=== PATIENT | male | born 1975 | race Caucasian/White ===

== ENCOUNTER 2021-12-18 06:53 | Inpatient (IN) | payer MEDICAID, SELFPAY ==
[2021-12-18] VITALS (11 sets, daily range): BP systolic 124–156; BP diastolic 61–99; PULSE 82–98; RESP 12–19; TEMP 36.5–37.1; O2SAT 97–99; BMI 24.4
--- NOTE | 2021-12-18 07:56 | ED.WOUNDLAC ---
HPI - Wound/Laceration General Chief Complaint: Wound/Laceration Stated Complaint: Mersa on left leg Time Seen by Provider: 12/18/21 07:55 Source: patient Mode of arrival: Ambulatory Limitations: no limitations History of Present Illness HPI narrative: This is a 46-year-old man with history of housing insecurity, longstanding left lower leg infection. Patient states initially he injured his leg when trying to pull would out of a pile of tree that had been cut down he fell scraping or cutting his leg. Patient has had chronic injury for the past reported 10 months he states that it has never healed. He has been on antibiotics he has been told he had MRSA. He was referred to the wound care clinic at [facility] but was never able to establish there was not any openings. Patient states he has had some subjective fever chills sensation, he had rapid increase in swelling of his left lower extremity over the past several days. He states the wound has not really been draining new staff occasionally will be purulent but sometimes or but clear discoloration. He has had increasing pain particularly in the back calf and has area of scab. He states the redness seems to have been longstanding but has developed heat and warmth to the area. Patient occasionally has had some funny feelings in his chest but denies chest pain, no shortness of breath. He has had nausea but no active vomiting. No major issues with bowel movements or urination. He denies any regular medical issues or that he should be taking any prescription drugs. Denies any prior surgeries. He does use tobacco, occasional alcohol, states use marijuana but denies any IV drug use or other recreational substances. Patient does not have an established primary care provider. He states he has found stable housing recently. Records from October 2021 ER visit was obtained from [facility]. It appears patient has been treated with Bactrim, clinda + keflex in October, Linezolid and Cipro in June. Patient's chart shows in early September she had a culture that showed Klebsiella and MRSA. Related Data Home Medications Medication Instructions Recorded Confirmed No Known Home Medications 12/18/21 12/18/21 Allergies Allergy/AdvReac Type Severity Reaction Status Date / Time No Known Drug Allergies Allergy Verified 12/18/21 07:10 Review of Systems Review of Systems ROS Unobtainable: All systems reviewed & are unremarkable except as noted in HPI and below Patient History Social History household members: other Smoking Status: Current every day smoker alcohol intake: never Smoking Status: Current every day smoker alcohol intake frequency: 0-2 drinks per day Substance Use Type: marijuana Exam Narrative Exam Narrative: GENERAL: Alert and oriented x three, male in mild distress. HEENT: Head normocephalic, atraumatic, EOMI, pupils reactive, face symmetric, moist mucous membranes NECK: Supple, full range of motion CARDIOVASCULAR: Regular rate and rhythm without murmurs, rubs or gallops. Positive for JVD. RESPIRATORY: Breath sounds equal bilaterally, no wheezes rales or rhonchi. No tachypnea accessory muscle use. ABDOMEN: Soft, nontender. Normoactive bowel sounds all 4 quadrants. No guarding or rebound, rigidity, no mass : No CVA tenderness EXTREMITIES: Normal range of motion, no clubbing. Neurovascularly intact. Patient has significant swelling of the left calf and foot in comparison to the right, there is a 5 x 6 cm irregularly shaped wound on the anterior layton without active drainage but has brownish discolored dried crusting. Patient also has some peeling of the skin on the dorsum of his foot. Patient is tender over the calf the lower leg for about 4 cm below the knee is erythematous, there is significant warmth on the posterior calf not as appreciable on the anterior leg. There is also scabbed regions about 2 cm x 1 cm on the posterior calf without open wound visualized. Patient's cap refills less than 2 seconds. Patient has normal range of motion. NEUROLOGICAL: Cranial nerves II through XII grossly intact. Moving all extremities SKIN: Warm, dry, no petechiae, no rashes or lesions other than noted above. Initial Vital Signs Initial Vital Signs: Vital Signs Temperature 98.4 F 12/18/21 07:00 Pulse Rate 93 H 12/18/21 07:00 Respiratory Rate 18 12/18/21 07:00 Blood Pressure 135/80 12/18/21 07:00 Pulse Oximetry 99 12/18/21 07:00 Course Orders Ordered: Acetaminophen (Acetaminophen 325 Mg Tablet) 650 mg PO Q6HR PRN PRN Reason: pain Enoxaparin Sodium (Enoxaparin 40 Mg/0.4 Ml Syringe) 40 mg SUBCUT DAILY DORIS Ceftriaxone Sodium 1,000 mg/ (Sodium Chloride) 100 mls @ 200 mls/hr IV Q24H [facility] Last Infusion: 12/18/21 14:43 Dose: 0 mls/hr Documented by: Admin: 12/18/21 13:45 Dose: 200 mls/hr Documented by: EMMA Vancomycin HCl/Dextrose (Vancomycin) 1,500 mg in 300 mls @ 200 mls/hr IV Q12H [facility] Last Admin: 12/18/21 14:43 Dose: 200 mls/hr Documented by: EMMA Naloxone HCl (Naloxone 0.4 Mg/Ml Vial) 0.2 mg IV Q2MIN PRN PRN Reason: Opiate Reversal Vancomycin HCl (Vancomycin Trough) 1 request MISC NOW ONE Stop: 12/20/21 01:31 Discontinued Medications Sodium Chloride (Normal Saline 0.9%) 2,397 mls @ 799 mls/hr 30 ml/kg infuse over 3 hr (2397 ml) IV NOW ONE Stop: 12/18/21 11:25 Last Admin: 12/18/21 09:00 Dose: 799 mls/hr Documented by: MARIA G Clindamycin Phosphate (Cleocin) 900 mg in 50 mls @ 50 mls/hr IV NOW ONE Stop: 12/18/21 09:25 Last Admin: 12/18/21 09:01 Dose: 50 mls/hr Documented by: MARIA G Ketorolac Tromethamine (Ketorolac 30 Mg/Ml Vial) 15 mg IV NOW ONE Stop: 12/18/21 08:27 Last Admin: 12/18/21 09:00 Dose: 15 mg Documented by: MARIA G Pantoprazole Sodium (Pantoprazole 40 Mg Vial) 80 mg IV NOW ONE Stop: 12/18/21 11:23 Vancomycin HCl (Vancomycin Per Pharmacy) 1 request MISC NOW ONE Stop: 12/18/21 13:04 Last Admin: 12/18/21 13:47 Dose: Not Given Documented by: EMMA Consultations Consultation #1: Dr. Johnston, [facility] accepts for observation. Time: 11:42 Vital Signs Vital signs: Vital Signs - 8 hr 12/18/21 07:00 12/18/21 09:00 12/18/21 09:30 Temperature 98.4 F Pulse Rate 93 H 98 H 90 Respiratory Rate 18 16 18 Blood Pressure 135/80 140/79 128/61 Pulse Oximetry 99 99 98 12/18/21 10:20 Temperature Pulse Rate 92 H Respiratory Rate 12 Blood Pressure 133/68 Pulse Oximetry MDM - Wound/Laceration Lab Data Result diagrams: 12/18/21 07:52 12/18/21 07:52 Labs: Lab Results 12/18/21 12/18/21 12/18/21 Range/Units 07:52 07:52 07:52 WBC 13.3 H (4.5-11.0) X10^3/uL RBC 4.28 L (4.5-5.9) X10^6/uL Hgb 12.6 L (13.5-17.5) g/dL Hct 38.1 L (41-53) % MCV 89.0 (80-100) fL MCH 29.4 (26-34) PG MCHC 33.0 (30-36) % RDW 15.5 H (11.6-14.8) % Plt Count 247 (150-400) X10^3/uL Neut % (Auto) 79.4 H (50-75) % Lymph % (Auto) 12.6 L (25-40) % [place] % (Auto) 6.8 (3-14) % Eos % (Auto) 0.8 L (2-4) % Baso % (Auto) 0.4 (0-2) % Neut # (Auto) 53125 H (1982-9235) /uL Lymph # (Auto) 1700 (3449-5394) /uL [place] # (Auto) 900 (0-900) /uL Eos # (Auto) 100 (0-450) /uL Baso # (Auto) 0 (0-100) /uL Sodium 134 L (137-145) mmol/L Potassium 3.4 (3.4-5.1) mmol/L Chloride 98 (98-107) mmol/L Carbon Dioxide 30 (22-32) mmol/L BUN 16 (9-20) mg/dL Creatinine 0.98 (0.66-1.25) mg/dL Estimated GFR > 60 (>60) mL/min BUN/Creatinine Ratio 16.3 (6-22) Glucose 120 H (70-100) mg/dL Lactate 1.7 (0.7-2.1) mmol/L Calcium 8.8 (8.4-10.2) mg/dL Total Bilirubin 0.5 (0.2-1.3) mg/dL AST 20 (17-59) IU/L ALT 12 (<50) IU/L Alkaline Phosphatase 89 (38-126) U/L Total Protein 7.7 (6.3-8.2) g/dL Albumin 3.9 (3.5-5.0) g/dL Globulin 3.8 (1.7-4.1) g/dL Albumin/Globulin Ratio 1.0 (1.0-2.8) Lipase 52 (23-300) U/L Procalcitonin 0.37 (<0.5) ng/mL SARS-CoV-2 (PCR) (Negative) 12/18/21 Range/Units 09:04 WBC (4.5-11.0) X10^3/uL RBC (4.5-5.9) X10^6/uL Hgb (13.5-17.5) g/dL Hct (41-53) % MCV (80-100) fL MCH (26-34) PG MCHC (30-36) % RDW (11.6-14.8) % Plt Count (150-400) X10^3/uL Neut % (Auto) (50-75) % Lymph % (Auto) (25-40) % [place] % (Auto) (3-14) % Eos % (Auto) (2-4) % Baso % (Auto) (0-2) % Neut # (Auto) (4001-5397) /uL Lymph # (Auto) (4175-7272) /uL [place] # (Auto) (0-900) /uL Eos # (Auto) (0-450) /uL Baso # (Auto) (0-100) /uL Sodium (137-145) mmol/L Potassium (3.4-5.1) mmol/L Chloride (98-107) mmol/L Carbon Dioxide (22-32) mmol/L BUN (9-20) mg/dL Creatinine (0.66-1.25) mg/dL Estimated GFR (>60) mL/min BUN/Creatinine Ratio (6-22) Glucose (70-100) mg/dL Lactate (0.7-2.1) mmol/L Calcium (8.4-10.2) mg/dL Total Bilirubin (0.2-1.3) mg/dL AST (17-59) IU/L ALT (<50) IU/L Alkaline Phosphatase (38-126) U/L Total Protein (6.3-8.2) g/dL Albumin (3.5-5.0) g/dL Globulin (1.7-4.1) g/dL Albumin/Globulin Ratio (1.0-2.8) Lipase (23-300) U/L Procalcitonin (<0.5) ng/mL SARS-CoV-2 (PCR) Positive H (Negative) Imaging Data Extremity x-ray #1: Radiologist's Impression: [address] [address] XRay Report Signed Patient: Praveen Capps MR#: [id number] : 1975 Acct:[id number] Age/Sex: 46 / M Date of Service: 12/18/21 Loc: ED Accession Number: [id number] ?? Procedure: XR tibia fibula LT 2V Ordering Provider: Lupe Cross D.O. PROCEDURE:? XR TIBIA FIBULA LT 2V ? INDICATIONS:? chronic leg infection, r/o FB ? TECHNIQUE:? 2 views of the tibia and fibula were acquired.? ? COMPARISON:? None. ? FINDINGS:? ? Bones:? No acute fractures or dislocations.? No suspicious bony lesions.? ? Soft tissues:? No suspicious soft tissue calcifications or masses.? Skin irregularity is seen at the anterior aspect of lower leg.? Diffuse subcutaneous soft tissue edema is present. ? IMPRESSION:? Skin irregularity is seen at the anterior lower leg with diffuse subcutaneous soft tissue edema.? No radiopaque foreign body. ? Dictated by: Tho Beach M.D. on 12/18/2021 at 8:41 ? ? Approved by: Toh Beach M.D. on 12/18/2021 at 8:46?? US - DVT: Radiologist's Impression: Praveen Capps??46??M??1975 ? Allergy/Adv: No Known Drug Allergies Close Vascular Ultrasound (Signed) Osito Lloyd - 12/18/21 Tibia/Fibula X-Ray (Signed) Tho Beach - 12/18/21 Launch?[address] [address] Ultrasound Report Signed Patient: Praveen Capps MR#: [id number] : 1975 Acct:[id number] Age/Sex: 46 / M Date of Service: 12/18/21 Loc: ED Accession Number: [id number] ?? Procedure: US periph venous low extrem lt Ordering Provider: Lupe Cross D.O. PROCEDURE:? US PERIPH VENOUS LOW EXTREM LT ? INDICATIONS:? PAIN AND SWELLING WITH CHRONIC INFECTION ? TECHNIQUE:? Real-time imaging, as well as color and pulse Doppler interrogation, were performed of the lower extremity deep veins from the inguinal ligament to the popliteal fossa.? ? COMPARISON:? None. ? FINDINGS:? The common femoral, femoral and popliteal veins are normally compressible, and free of intraluminal thrombus.? Color and pulse Doppler demonstrate normal phasic intraluminal flow.? There is normal augmentation response to distal compression maneuver. ? ? A1 can be seen, without an associated underlying fluid collection. ? Enlarged left groin lymph nodes are seen, with the largest measuring 3.5 x 1.4 x 2.8 cm.? This lymph node demonstrates a normal fatty hilum.? There is additional enlarged lymph node measuring 3 x 3 x 1.4 cm that demonstrates loss of the normal fatty hilum. ? IMPRESSION:? ? Negative for deep venous thrombosis. ? No fluid collections are seen associated with the wound. ? Enlarged left groin lymph nodes are seen. ? ? Dictated by: Osito Lloyd M.D. on 12/18/2021 at 8:13 ? ? Approved by: Osito Lloyd M.D. on 12/18/2021 at 8:14?? [facility] Narrative Medical decision making narrative: This is a 46-year-old male presents with chronic left lower extremity wound infection which appears to be worsening. Patient has elevated heart rate at 90, does not quite meet septic criteria his white count is 13 today. Hemoglobin is 12 he does have a leftward shift, labs are otherwise fairly unremarkable with a sodium of 134 glucose of 120 with normal renal function normal lactate and a negative procalcitonin. Patient had x-ray imaging unclear if he has had this before evaluate for foreign body or any obvious bony changes not or appreciated, DVT ultrasound was also ordered as he has significant swelling and calf tenderness and longstanding infection which is negative but does show some inguinal lymphadenopathy. Patient is COVID positive today which is likely incidental. He is oxygenation has been appropriate today. Patient has been on multiple antibiotics, he has been recommended to wound care but he there has not been able to or has not established. Last visit I have available is in October at [facility]. Discussed with hospitalist about keeping for observation and IV antibiotics and to he accepts for observation. Discharge Plan Departure Patient Disposition: Admitted as Observation Clinical Impression: Chronic wound of extremity, Cellulitis of left leg, COVID-19 virus infection Admit Date/Time: 12/18/21 11:48 Admit Provider: Pepe Johnston
[2021-12-18 08:02] LABS: Add Manual Diff / Slide Review NO; Basophils Absolute Auto 0 /uL (0-100); Basophils Percent Auto 0.4 % (0-2); Eosinophils Absolute Auto 100 /uL (0-450); Eosinophils Percent Auto 0.8 % (2-4); Hematocrit 38.1 % (41-53); Hemoglobin 12.6 g/dL (13.5-17.5); Lymphocytes Absolute Auto 1700 /uL (1100-4500); Lymphocytes Percent Auto 12.6 % (25-40); Mean Corpuscular Hemoglobin 29.4 PG (26-34); Monocytes Absolute Auto 900 /uL (0-900); Monocytes Percent Auto 6.8 % (3-14); Neutrophils Absolute Auto 10600 /uL (1500-7000); Neutrophils Percent Auto 79.4 % (50-75); Platelet Count 247 X10^3/uL (150-400); Red Blood Cell Count 4.28 X10^6/uL (4.5-5.9); Red Cell Distribution Width 15.5 % (11.6-14.8); White Blood Cell Count 13.3 X10^3/uL (4.5-11.0)
[2021-12-18 08:21] LABS: Lactate (Lactic Acid) 1.7 mmol/L (0.7-2.1)
[2021-12-18 08:22] LABS: Alanine Aminotransferase 12 IU/L (<50); Albumin 3.9 g/dL (3.5-5.0); Alkaline Phosphatase 89 U/L (38-126); Aspartate Aminotransferase 20 IU/L (17-59); BUN Creatinine Ratio 16.3 (6-22); Bilirubin Total 0.5 mg/dL (0.2-1.3); Blood Urea Nitrogen 16 mg/dL (9-20); Calcium 8.8 mg/dL (8.4-10.2); Carbon Dioxide 30 mmol/L (22-32); Chloride 98 mmol/L (98-107); Estimated Glomerular Filt Rate > 60 mL/min (>60); Globulin 3.8 g/dL (1.7-4.1); Glucose 120 mg/dL (70-100); HEMOLYSIS < 15 (0-50); Lipase 52 U/L (23-300); Potassium 3.4 mmol/L (3.4-5.1); Sodium 134 mmol/L (137-145); Total Protein 7.7 g/dL (6.3-8.2)
--- NOTE | 2021-12-18 08:26 | DI.US.S_ITS ---
PROCEDURE: US PERIPH VENOUS LOW EXTREM LT INDICATIONS: PAIN AND SWELLING WITH CHRONIC INFECTION TECHNIQUE: Real-time imaging, as well as color and pulse Doppler interrogation, were performed of the lower extremity deep veins from the inguinal ligament to the popliteal fossa. COMPARISON: None. FINDINGS: The common femoral, femoral and popliteal veins are normally compressible, and free of intraluminal thrombus. Color and pulse Doppler demonstrate normal phasic intraluminal flow. There is normal augmentation response to distal compression maneuver. A1 can be seen, without an associated underlying fluid collection. Enlarged left groin lymph nodes are seen, with the largest measuring 3.5 x 1.4 x 2.8 cm. This lymph node demonstrates a normal fatty hilum. There is additional enlarged lymph node measuring 3 x 3 x 1.4 cm that demonstrates loss of the normal fatty hilum. IMPRESSION: Negative for deep venous thrombosis. No fluid collections are seen associated with the wound. Enlarged left groin lymph nodes are seen. Dictated by: Osito Lloyd M.D. on 12/18/2021 at 8:13 Approved by: Osito Lloyd M.D. on 12/18/2021 at 8:14
--- NOTE | 2021-12-18 08:26 | DI.RAD.S_ITS ---
PROCEDURE: XR TIBIA FIBULA LT 2V INDICATIONS: chronic leg infection, r/o FB TECHNIQUE: 2 views of the tibia and fibula were acquired. COMPARISON: None. FINDINGS: Bones: No acute fractures or dislocations. No suspicious bony lesions. Soft tissues: No suspicious soft tissue calcifications or masses. Skin irregularity is seen at the anterior aspect of lower leg. Diffuse subcutaneous soft tissue edema is present. IMPRESSION: Skin irregularity is seen at the anterior lower leg with diffuse subcutaneous soft tissue edema. No radiopaque foreign body. Dictated by: Tho Beach M.D. on 12/18/2021 at 8:41 Approved by: Tho Beach M.D. on 12/18/2021 at 8:46
[2021-12-18 08:39] LABS: Procalcitonin 0.37 ng/mL (<0.5)
[2021-12-18] MEDS: SODIUM CHLORIDE 0.9% 799 ML IV (09:00)
[2021-12-18] MEDS: KETOROLAC 30 MG/ML VIAL 15 MG IV (09:00)
[2021-12-18] MEDS: CLINDAMYCIN 900 MG/50 ML PIGGYBACK 50 MG IV (09:01)
[2021-12-18 09:46] LABS: COVID19 -Nasal RAPID POSITIVE (Negative)
--- NOTE | 2021-12-18 12:08 | CM.IDA ---
DCP Assessment Patient is 46 y/o male who presents to the ED due to concern for MRSA infected wounds on his lower left leg for the last 15 months. Patient has hx of 10 ED encounters within the last 12 months related to such medical concern. Patient was seen at [facility] yesterday and a majority of patient's care has been at [facility]. Patient has no PCP listed, patient has Medicaid insurance. Patient tests positive for Covid-19 at this presentation to the ED so this CLIENT BUSINESS MANAGER does not enter room. Per ED provider Dr. Cross and lamination machine operator Dianne, patient has been admitted and accepted by hospitalist Dr. Johnston for further medical evaluation. Upon triage, patient endorses concern for food, financial, transportation and housing insecurities. Patient endorses hx of tobacco, marijuana and ETOH use. Plan: DCP to f/u with POC upon further medical evaluation, patient to be admitted to acute care. SPENSER Yarbrough Discharge Planning/Care Management CM Discharge Assessment Start: 12/18/21 12:04 Freq: Status: Active Protocol: Document 12/18/21 12:04 LN (Rec: 12/18/21 12:08 LN [id number]) Discharge Planning Assessment Assigned Operations Chief SPENSER Pop Advance Directives? No Advance Directives on File No History Provided By Medical Record Has Patient been admitted in last 30 No days? Prior Living Arrangements Homeless Household Members other Type of transportation used prior to Relies on Others admit Independent with ADL's Yes Is patient alert and oriented? Yes Caregiver for Another No Please Provide Date Initial DC 12/18/21 Assessment Was Performed
[2021-12-18 13:10] LABS: Appearance Urine UA CLEAR; Bilirubin Urine UA NEGATIVE (NEGATIVE); Color Urine UA YELLOW; Glucose Urine UA TRACE g/dL (Negative); Ketones Urine UA NEGATIVE (NEGATIVE); Leukocyte Esterase Urine UA NEGATIVE (NEGATIVE); Nitrite Urine UA NEGATIVE (Negative); Occult Blood Urine UA NEGATIVE (Negative); Protein Urine UA TRACE (Negative); Urobilinogen Urine UA 0.2 E.U./dL (0.2)
[2021-12-18 13:38] LABS: Bacteria Urine None Seen; Culture Indicated Urine Cult Not Indicated; RBC Urine None Seen (0-5/HPF); Squamous Epithelial Cell Urine None Seen (0-5/HPF); WBC Urine None Seen (0-5/HPF)
[2021-12-18] MEDS: cefTRIAXone 1,000 MG in SODIUM CHLORIDE 0.9% 100 ML 200 MG IV (13:45)
[2021-12-18] MEDS: VANCOMYCIN 1,500 MG/300 ML PIGGYBACK 200 MG IV (14:43)
--- NOTE | 2021-12-18 21:10 | PM.HP.1 ---
History of Present Illness History of Present Illness Date Patient Seen: 12/18/21 Time Patient Seen: 11:00 Chief complaint: Yo[place] on left leg Narrative: 46M with H chronic left leg ulcer, unstable housing who presents with redness and pain of his leg. He reportedly initially injured his leg when a part of tree injured him nearly a year ago. He has been referred to wound clinic but has not been. He has been treated multiple times with antibiotcis, last in September or October for Klebsiella and MRSA. He has been treated with bactrim, then linezolid/cipro and then clinda/keflex regimens in the past. He reportedly had subjective fevers and noticed significant swelling of his leg along with redness, warmth, and pain. Reportedly he does use tobacco, occasional alcohol, states use marijuana but denies any IV drug use or other recreational substances.?No PCP.? In the ED workup was done, vitals notable for mild tachycardia in the 90s. Labs notable for WBC of 13.3, hgb 12.6. Lactate 1.7. Procal 0.37. COVID positive. Ultrasound for DVT negative. Xray for foreign body negative. He was ordered for IV antibiotics. Of note, when I did examine him he was quite lethargic and was too sleepy to provide much information. Family history: unable to provide due to mental status Social history: unable to provide due to mental status Patient History Family & Social History Social History: household members other Prior Living Arrangements Apartment/Condo Safety & Behavioral: Feels Safe in Current Yes Environment Been Physically Hurt or No Threatened By a Person Tobacco & Substance use: Smoking Status Current every day smoker Smoking packs per day 1 alcohol intake never alcohol intake frequency 0-2 drinks per day Substance Use Type marijuana Meds Home Medications and Allergies Home Medications Medication Instructions Recorded Confirmed Type No Known Home Medications 12/18/21 12/18/21 History Allergies Allergy/AdvReac Type Severity Reaction Status Date / Time No Known Drug Allergies Allergy Verified 12/18/21 07:10 Review of Systems Review of Systems Narrative: unable to provide due to mental status Exam Vital Signs (past 8 hours): - 12/18/21 13:23 12/18/21 20:22 Temperature 97.7 F 98.8 F Pulse Rate 82 90 Respiratory Rate 16 18 Blood Pressure 152/99 H 132/77 Pulse Oximetry 97 97 Oxygen Delivery Method Room Air Oxygen Flow Rate 0 Narrative Exam Narrative: GEN: lethargic, sleepy HEENT: moist mucous membranes, PERRL NECK: trachea midline, no JVD CV: regular rate and rhythm, no murmurs PULM: clear bilaterally, no wheezes/rhonchi/rales ABD: soft, nontender, nondistended, no organomegaly EXT: warm and well perfused, left leg ulcer chronic appearing with purulence, most of entirety of anterior lower leg is swollen, warm and red NEURO: sleep and lethargic, moving all extremities Objective Labs Result Diagrams: 12/18/21 07:52 12/18/21 07:52 Labs: Laboratory Results - last 24 hr 12/18/21 12/18/21 12/18/21 07:52 07:52 07:52 WBC 13.3 H RBC 4.28 L Hgb 12.6 L Hct 38.1 L MCV 89.0 MCH 29.4 MCHC 33.0 RDW 15.5 H Plt Count 247 Neut % (Auto) 79.4 H Lymph % (Auto) 12.6 L [place] % (Auto) 6.8 Eos % (Auto) 0.8 L Baso % (Auto) 0.4 Neut # (Auto) 11[address] H Lymph # (Auto) 1700 [place] # (Auto) 900 Eos # (Auto) 100 Baso # (Auto) 0 Sodium 134 L Potassium 3.4 Chloride 98 Carbon Dioxide 30 BUN 16 Creatinine 0.98 Estimated GFR > 60 BUN/Creatinine Ratio 16.3 Glucose 120 H Lactate 1.7 Calcium 8.8 Total Bilirubin 0.5 AST 20 ALT 12 Alkaline Phosphatase 89 Total Protein 7.7 Albumin 3.9 Globulin 3.8 Albumin/Globulin Ratio 1.0 Lipase 52 Procalcitonin 0.37 Urine Color Urine Appearance Urine pH Ur Specific [place] Urine Protein Urine Glucose (UA) Urine Ketones Urine Occult Blood Urine Nitrate Urine Bilirubin Urine Urobilinogen Ur Leukocyte Esterase Urine RBC Urine WBC Ur Squamous Epith Cells Urine Bacteria Ur Culture Indicated? SARS-CoV-2 (PCR) 12/18/21 12/18/21 09:04 12:15 WBC RBC Hgb Hct MCV MCH MCHC RDW Plt Count Neut % (Auto) Lymph % (Auto) [place] % (Auto) Eos % (Auto) Baso % (Auto) Neut # (Auto) Lymph # (Auto) [place] # (Auto) Eos # (Auto) Baso # (Auto) Sodium Potassium Chloride Carbon Dioxide BUN Creatinine Estimated GFR BUN/Creatinine Ratio Glucose Lactate Calcium Total Bilirubin AST ALT Alkaline Phosphatase Total Protein Albumin Globulin Albumin/Globulin Ratio Lipase Procalcitonin Urine Color Yellow Urine Appearance Clear Urine pH 6.0 Ur Specific [place] 1.010 Urine Protein Trace H Urine Glucose (UA) Trace H Urine Ketones Negative Urine Occult Blood Negative Urine Nitrate Negative Urine Bilirubin Negative Urine Urobilinogen 0.2 Ur Leukocyte Esterase Negative Urine RBC None seen Urine WBC None seen Ur Squamous Epith Cells None seen Urine Bacteria None seen Ur Culture Indicated? Cult not indicated SARS-CoV-2 (PCR) Positive H Assessment & Plan Assessment & Plan narrative: Mr. Capps is a 46M with chronic leg wound admitted with cellulitis. 1. Acute cellulitis -started on IV antibiotics and vancomycin and ceftriaxone -await cultures -likely can be switched to oral medications soon -no evidence of sepsis -consider wound clinic referall on discharge 2. Acute encephalopathy -suspect in setting of acute illness -however rule out possibility of intoxicant by checking urine drug screen -careful with medications that can cause altered mental status -COVID positive, but do not suspect this as cause -if mental status not recovered, check CT head 3. COVID positive -has no respiratory symptoms -supportive treatment for now CODE: Full Proxy: Marii Paz I have utilized all available resources to reconcile the patient's home medications Time Spent With Patient Critical Care time: I spent a total of [] minutes of critical care time on this patient's care today; this time is exclusive of procedural time. Quality VTE Deep Vein Thrombosis/Pulmonary Embolism Present on Admission: No MIPS - Admit I confirm the patient?s Advance Care Plan is present, Code status is documented, Surrogate decision maker is in patient?s record [If Yes, STOP here]: Yes
[2021-12-19 00:08] LABS: UR Morphine/Opiate cutoff 300 Negative (Negative); Ur Creatinine 20 (Normal); Ur Specific Gravity 1.015 (Normal); Urine Amphetamines Positive (Negative); Urine Barbiturates Negative (Negative); Urine Benzodiazepines Negative (Negative); Urine Cocaine Negative (Negative); Urine MDMA Negative (Negative); Urine Methadone Negative (Negative); Urine Methamphetamines Positive (Negative); Urine Oxycodone Negative (Negative); Urine Phencyclidine Negative (Negative); Urine Tetrahydrocannabinol Negative (Negative); Urine Tricyclic Antidepressant Negative (Negative); Urine pH 5 (Normal)
[2021-12-19] MEDS: VANCOMYCIN 1,500 MG/300 ML PIGGYBACK 200 MG IV ×2 (01:37→13:27)
[2021-12-19 05:16] LABS: Add Manual Diff / Slide Review NO; Basophils Absolute Auto 100 /uL (0-100); Basophils Percent Auto 1.4 % (0-2); Eosinophils Absolute Auto 500 /uL (0-450); Eosinophils Percent Auto 4.7 % (2-4); Hematocrit 37.7 % (41-53); Hemoglobin 12.6 g/dL (13.5-17.5); Lymphocytes Absolute Auto 1000 /uL (1100-4500); Lymphocytes Percent Auto 9.5 % (25-40); Mean Corpuscular HGB Conc 33.4 % (30-36); Mean Corpuscular Hemoglobin 29.5 PG (26-34); Mean Corpuscular Volume 88.3 fL (80-100); Monocytes Absolute Auto 600 /uL (0-900); Monocytes Percent Auto 5.8 % (3-14); Neutrophils Absolute Auto 7900 /uL (1500-7000); Neutrophils Percent Auto 78.6 % (50-75); Platelet Count 254 X10^3/uL (150-400); Red Blood Cell Count 4.26 X10^6/uL (4.5-5.9); Red Cell Distribution Width 15.7 % (11.6-14.8); White Blood Cell Count 10.1 X10^3/uL (4.5-11.0)
[2021-12-19 05:21] LABS: BUN Creatinine Ratio 14.9 (6-22); Blood Urea Nitrogen 10 mg/dL (9-20); Calcium 8.2 mg/dL (8.4-10.2); Carbon Dioxide 23 mmol/L (22-32); Chloride 106 mmol/L (98-107); Estimated Glomerular Filt Rate > 60 mL/min (>60); Glucose 91 mg/dL (70-100); HEMOLYSIS < 15 (0-50); Potassium 4.3 mmol/L (3.4-5.1); Sodium 136 mmol/L (137-145)
[2021-12-19 06:06] VITALS: BP 135/76; PULSE 82; RESP 19; TEMP 37.4; O2SAT 96
[2021-12-19 08:00] VITALS: BP 147/94; PULSE 85; RESP 17; TEMP 37.1; O2SAT 100
[2021-12-19] MEDS: ENOXAPARIN 40 MG/0.4 ML SYRINGE SUBCUT (08:51)
[2021-12-19 12:00] VITALS: BP 133/79; PULSE 87; RESP 18; TEMP 37.3; O2SAT 97
[2021-12-19] MEDS: cefTRIAXone 1,000 MG in SODIUM CHLORIDE 0.9% 100 ML 100 MG IV (12:13)
--- NOTE | 2021-12-19 12:50 | CM.DPC ---
DCP Cont.: Pt was admitted to the floor for ongoing cellulitis infection in the L leg. Pt has been started on IV antibiotics and cultures have no growth after 24 hours. Per MD, could go to oral abx soon. Recommending possible wound clinic referral on discharge upon hospitalist recommendation. Pt is positive for Covid and has altered mental status but per MD does not appear to be related to Covid. Pt has hx of tobacco, marijuana, and ETOH use. Per SPENSER Pop, patient has concern for food, finances, transportation, and housing insecurities. P: DCP to continue to follow case. Unable to talk with pt today by phone. DCP unable to go into room due to + covid status. DCP will continue to coordinate care with team. Mely Campos RN/MICHELLEP
--- NOTE | 2021-12-19 16:49 | P.PN_ITS ---
Subjective Subjective Date Patient Seen: 12/19/21 Interval history: Continues to have some L calf pain and swelling today, though it is improving. Exam Vital Signs (past 8 hours): - 12/19/21 12:00 Temperature 99.1 F Pulse Rate 87 Respiratory Rate 18 Blood Pressure 133/79 Pulse Oximetry 97 Oxygen Delivery Method Room Air Oxygen Flow Rate 0 Narrative Exam Narrative: GEN: alert, NAD. HEENT: moist mucous membranes, PERRL NECK: trachea midline, no JVD CV: regular rate and rhythm, no murmurs PULM: clear bilaterally, no wheezes/rhonchi/rales ABD: soft, nontender, nondistended, no organomegaly EXT: warm and well perfused, left leg ulcer chronic appearing without any surrounding erythema or purulence, swelling now mostly posterior with mild eryt valerie and tenderness, improved from prior demarcation. Objective Labs Result Diagrams: 12/19/21 04:45 12/19/21 04:45 Labs: Laboratory Results - last 24 hr 12/18/21 12/19/21 12/19/21 23:35 04:45 04:45 WBC 10.1 RBC 4.26 L Hgb 12.6 L Hct 37.7 L MCV 88.3 MCH 29.5 MCHC 33.4 RDW 15.7 H Plt Count 254 Neut % (Auto) 78.6 H Lymph % (Auto) 9.5 L [place] % (Auto) 5.8 Eos % (Auto) 4.7 H Baso % (Auto) 1.4 Neut # (Auto) 7900 H Lymph # (Auto) 1000 L [place] # (Auto) 600 Eos # (Auto) 500 H Baso # (Auto) 100 Sodium 136 L Potassium 4.3 Chloride 106 Carbon Dioxide 23 BUN 10 Creatinine 0.67 Estimated GFR > 60 BUN/Creatinine Ratio 14.9 Glucose 91 Calcium 8.2 L U Opiates 300ng/mL cut Negative Ur Oxycodone Screen Negative Urine Methadone Screen Negative Ur Barbiturates Screen Negative U Tricyclic Antidepress Negative Ur Phencyclidine Scrn Negative Ur Amphetamines Screen Positive H U Methamphetamines Scrn Positive H Ur MDMA Scrn (Ecstasy) Negative U Benzodiazepines Scrn Negative Urine Cocaine Screen Negative U Marijuana (THC) Screen Negative PFSH Social History household members: other Smoking Status: Current every day smoker alcohol intake: never Assessment & Plan Assessment & Plan narrative: Mr. Capps is a 46M with chronic leg wound admitted with cellulitis. 1. Acute cellulitis -started on IV antibiotics and vancomycin and ceftriaxone -blood cultures negative thus far. -likely can be switched to oral medications tomorrow. -no evidence of sepsis overtly other than encephalopathy. -consider wound clinic referall on discharge 2. Acute encephalopathy, improved -suspect in setting of acute illness -possibly due to substance as UDS positive for methamphetamine and amphetamine -careful with medications that can cause altered mental status -COVID positive, but do not suspect this as cause -if mental status not recovered, check CT head 3. COVID positive -has no respiratory symptoms -supportive treatment for now CODE: Full Proxy: Marii Paz I have utilized all available resources to reconcile the patient's home medications Time Spent With Patient Critical Care time: I spent a total of [] minutes of critical care time on this patient's care today; this time is exclusive of procedural time. Quality VTE Deep Vein Thrombosis/Pulmonary Embolism Present on Admission: No
--- NOTE | 2021-12-19 17:55 | PC.NURSE ---
Pt is AxOx4, independent and cooperative. VSS, pt denies pain. Pt is eating and sleeping well. LLE cellulilitis is getting better. Pt took shower today.Continued droplet precaution. No other changes.
[2021-12-19 18:00] VITALS: BP 133/71; PULSE 88; RESP 18; TEMP 36.7; O2SAT 99
[2021-12-19] MEDS: SODIUM CHLORIDE 0.9% FLUSH 10 ML IV (21:33)
[2021-12-19] MEDS: ACETAMINOPHEN 325 MG TABLET 650 MG PO (21:56)
[2021-12-19 22:04] VITALS: BP 132/73; PULSE 80; RESP 18; TEMP 36.9; O2SAT 99
[2021-12-20 01:53] LABS: Vancomycin Trough 7.8 ug/mL (10-20)
[2021-12-20] MEDS: SODIUM CHLORIDE 0.9% FLUSH 10 ML IV ×2 (02:02→09:57)
[2021-12-20] MEDS: VANCOMYCIN 1,500 MG/300 ML PIGGYBACK 200 MG IV (02:03)
[2021-12-20] MEDS: VANCOMYCIN TROUGH 1 REQUEST MISC (02:03)
[2021-12-20 03:42] VITALS: BP 146/86; PULSE 87; RESP 18; TEMP 36.8; O2SAT 97
[2021-12-20 09:00] VITALS: BP 171/104; PULSE 89; RESP 16; TEMP 36.6; O2SAT 100
--- NOTE | 2021-12-20 09:45 | PC.RNWOUND ---
Patient resting in bed, awake and alert. Left lower extremity is elevated on pillows, light pink discoloration is noted to left lower extremity from midcalf to toes. There is an open ulcer to the left mid layton area which patient says has been there a long time. Patient says he has been referred to wound clinic but was never able to make it in. Left leg ulcer measures 4.7 x 3.4 x 0.1cm. Edges are well-defined and attached to wound base with dried adherent slough/crust to the edges only of the wound. Wound base is 100% red granulation tissue with a small to moderate amount of serous drainage noted, no malodor noted. Patient says drainage amount varies. Pedal pulses are faintly palpable capillary refill is less than 3 seconds to left great toe. Wound is gently cleansed with saline and dressed with antimicrobial dressing secured with gauze kerlix. Verbal education is given to patient regarding increasing protein in diet for wound healing, doing foot pumps to activate calf muscle, keeping wound clean, cutting down on smoking and/or quitting, following up at wound clinic. Patient verbalizes understanding and return verbalizes education to wound nurse.
[2021-12-20] MEDS: ENOXAPARIN 40 MG/0.4 ML SYRINGE SUBCUT (09:56)
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
[2021-12-20] MEDS: CEFDINIR 300 MG CAPSULE PO (10:50)
[2021-12-20] MEDS: LINEZOLID 600 MG TABLET PO (10:50)
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
== END 2021-12-20 13:20 | disposition home or self-care (01) | DRG 602 ==
LOC: ED 11:41 → AC 11:50
PROVIDERS: Admitting Provider Internal Medicine; Emergency Provider Emergency Medicine; Referring Provider Emergency Medicine; Visit Provider Internal Medicine
DX: L03.116 Cellulitis of left lower limb (principal); U07.1 COVID-19; L97.829 Non-pressure chronic ulcer of other part of left lower leg with unspecified severity; G93.40 Encephalopathy, unspecified; F17.200 Nicotine dependence, unspecified, uncomplicated
CPT/HCPCS: 36415; 73590; 80048; 80053; 80202; 80305; 81001; 83605; 83690; 84145; 85025; 87040; 87635; 93971; 96375; 99284; C9803; G0378; J0696; J1650; J1885

== ENCOUNTER 2022-08-04 06:18 | Emergency (ER) | payer OTHER, MEDICAID, SELFPAY ==
[2021-12-18 12:15] VITALS: BMI 24.4
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
[2022-08-04 06:40] VITALS: BP 157/91; PULSE 83; RESP 17; O2SAT 98; BMI 26.8
[2022-08-04 06:46] LABS: Add Manual Diff / Slide Review NO; Basophils Absolute Auto 100 /uL (0-100); Basophils Percent Auto 0.9 % (0-2); Eosinophils Absolute Auto 300 /uL (0-450); Eosinophils Percent Auto 3.8 % (2-4); Hematocrit 38.2 % (41-53); Hemoglobin 12.8 g/dL (13.5-17.5); Lymphocytes Absolute Auto 2500 /uL (1100-4500); Mean Corpuscular HGB Conc 33.5 % (30-36); Mean Corpuscular Hemoglobin 29.5 PG (26-34); Mean Corpuscular Volume 88.1 fL (80-100); Monocytes Absolute Auto 600 /uL (0-900); Neutrophils Absolute Auto 5200 /uL (1500-7000); Neutrophils Percent Auto 59.3 % (50-75); Platelet Count 394 X10^3/uL (150-400); Red Blood Cell Count 4.33 X10^6/uL (4.5-5.9); Red Cell Distribution Width 15.2 % (11.6-14.8); White Blood Cell Count 8.7 X10^3/uL (4.5-11.0)
[2022-08-04 06:57] LABS: BUN Creatinine Ratio 20.8 (6-22); Blood Urea Nitrogen 20 mg/dL (9-20); Calcium 8.8 mg/dL (8.4-10.2); Carbon Dioxide 30 mmol/L (22-32); Chloride 103 mmol/L (98-107); Estimated Glomerular Filt Rate > 60 mL/min (>60); Glucose 86 mg/dL (70-100); HEMOLYSIS < 15 (0-50); Potassium 3.6 mmol/L (3.4-5.1); Sodium 140 mmol/L (137-145)
[2022-08-04] MEDS: TET,DIPH,PERTUSS(ACELL),VAC/PF 0.5 ML SYRINGE IM (07:00)
[2022-08-04] MEDS: SODIUM CHLORIDE 0.9% 1,000 ML 125 ML IV (07:01)
[2022-08-04] MEDS: CEFAZOLIN VIAL 2 GM in SODIUM CHLORIDE 0.9% 100 ML IV (07:02)
[2022-08-04 07:30] VITALS: BP 144/91; PULSE 76
[2022-08-04] MEDS: BACITRACIN OINT 0.9 GM PCKT 2 APPLIC TOP (07:45)
[2022-08-04 07:51] LABS: COVID19 -Nasal RAPID Negative (Negative)
[2022-08-04 07:55] VITALS: BP 153/90; PULSE 77; O2SAT 97
[2022-08-04] MEDS: MORPHINE 4 MG/ML INJ IV (08:01)
[2022-08-04 08:30] VITALS: BP 144/88; PULSE 81; O2SAT 97
[2022-08-04 08:35] VITALS: BP 156/95; PULSE 81; O2SAT 97
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
== END 2022-08-04 09:35 | disposition short-term general hospital (02) ==
PROVIDERS: Emergency Medicine; Emergency Provider Emergency Medicine
DX: T20.29XA Burn of second degree of multiple sites of head, face, and neck, initial encounter (principal); L03.116 Cellulitis of left lower limb; L03.115 Cellulitis of right lower limb; Z20.822 Contact with and (suspected) exposure to COVID-19; X15.0XXA Contact with hot stove (kitchen), initial encounter; Z23 Encounter for immunization
CPT/HCPCS: 36415; 80048; 85025; 87635; 90471; 96365; 96375; 99285; 99291; C9803; 90715; J0690; J2270

== ENCOUNTER 2022-09-26 18:04 | Observation (INO) | payer OTHER, MEDICAID, SELFPAY ==
[2021-12-18 12:15] VITALS: BMI 24.4
[2022-09-26] VITALS (49 sets, daily range): BP systolic 116–158; BP diastolic 62–90; PULSE 88–110; RESP 13–38; TEMP 38.1–38.7; O2SAT 88–100; BMI 24.4
--- NOTE | 2022-09-26 18:45 | PC.NURSE ---
multiple attempts to get pt to triage, pt in bathroom. States he is well upon my inquiry.
--- NOTE | 2022-09-26 19:18 | PC.NURSE ---
Pt to room 11 from waiting room. Pt very somulant. Asked him to roll over and show us areas of concerns. Noted pipe and butane pen tender in left hand. Removed for pt and staff safety and bagged/labeled, locked in pt belongings cabinent. Then found crack pipe and knife in right hand. Removed for pt and staff safety and placed in same bagged / labeled area. Dr. Perez made aware.
--- NOTE | 2022-09-26 19:53 | DI.RAD.S_ITS ---
PROCEDURE: XR CHEST 1V INDICATIONS: suspected sepsis TECHNIQUE: One view of the chest was acquired. COMPARISON: None. FINDINGS: Surgical changes and devices: None. Lungs and pleura: Lungs are clear. No pleural effusions or pneumothorax. Mediastinum: Mediastinal contours appear normal. Heart size is normal. Bones and chest wall: No suspicious bony lesions. Overlying soft tissues appear unremarkable. IMPRESSION: 1. No acute cardiopulmonary disease. Dictated by: Edson Sawyer M.D. on 09/26/2022 at 20:16 Approved by: Edson Sawyer M.D. on 09/26/2022 at 20:17
[2022-09-26 20:13] LABS: Add Manual Diff / Slide Review NO; Basophils Absolute Auto 100 /uL (0-100); Basophils Percent Auto 0.5 % (0-2); Eosinophils Absolute Auto 0 /uL (0-450); Hematocrit 33.2 % (41-53); Lymphocytes Absolute Auto 900 /uL (1100-4500); Mean Corpuscular Hemoglobin 28.6 PG (26-34); Mean Corpuscular Volume 86.5 fL (80-100); Monocytes Absolute Auto 900 /uL (0-900); Monocytes Percent Auto 3.7 % (3-14); Neutrophils Absolute Auto 21500 /uL (1500-7000); Neutrophils Percent Auto 91.8 % (50-75); Platelet Count 421 X10^3/uL (150-400); Red Blood Cell Count 3.84 X10^6/uL (4.5-5.9); Red Cell Distribution Width 14.8 % (11.6-14.8); White Blood Cell Count 23.4 X10^3/uL (4.5-11.0)
[2022-09-26 20:14] LABS: INR 1.4 (0.9-1.3); Prothrombin Time 16.1 SECONDS (10.1-12.7)
[2022-09-26] MEDS: SODIUM CHLORIDE 0.9% 1,000 ML 1000 ML IV ×2 (20:14→21:26)
[2022-09-26] MEDS: ONDANSETRON 4 MG/2 ML INJ IV (20:14)
[2022-09-26] MEDS: KETOROLAC 30 MG/ML VIAL 15 MG IV (20:14)
[2022-09-26 20:17] LABS: Lactate (Lactic Acid) 0.7 mmol/L (0.7-2.1); PTT Partial Thromboplastin Tim 33 SECONDS (26-36)
[2022-09-26 20:19] LABS: Alanine Aminotransferase 17 IU/L (<50); Albumin 3.5 g/dL (3.5-5.0); Albumin Globulin Ratio 0.9 (1.0-2.8); Alkaline Phosphatase 101 U/L (38-126); Aspartate Aminotransferase 21 IU/L (17-59); Bilirubin Total 0.6 mg/dL (0.2-1.3); Blood Urea Nitrogen 15 mg/dL (9-20); Calcium 8.5 mg/dL (8.4-10.2); Carbon Dioxide 28 mmol/L (22-32); Chloride 95 mmol/L (98-107); Estimated Glomerular Filt Rate > 60 mL/min (>60); Globulin 4.1 g/dL (1.7-4.1); Glucose 114 mg/dL (70-100); HEMOLYSIS < 15 (0-50); Lipase 17 U/L (23-300); Potassium 4.1 mmol/L (3.4-5.1); Sodium 131 mmol/L (137-145); Total Protein 7.6 g/dL (6.3-8.2)
[2022-09-26 20:20] LABS: COVID19 -Nasal RAPID Negative (Negative)
[2022-09-26 20:35] LABS: Procalcitonin 0.18 ng/mL (<0.5)
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
--- NOTE | 2022-09-26 20:47 | DI.CT.S_ITS ---
PROCEDURE: CT CHEST ABD PEL W CON INDICATIONS: fever back pain TECHNIQUE: After the administration of intravenous contrast, axial sections acquired from the supraclavicular neck to the pubic symphysis. Coronal and sagittal reformats were performed. For radiation dose reduction, the following was used: automated exposure control, adjustment of mA and/or kV according to patient size. COMPARISON: None. FINDINGS: Image quality: There is motion artifact as well as beam hardening artifact limiting evaluation. CHEST: Lower Neck: No lymphadenopathy by size criteria. Thyroid: Visualized thyroid demonstrates no discrete nodules. Axillae: No lymphadenopathy by size criteria. Chest Wall: Unremarkable. Lungs and Airways: No acute consolidation. There is dependent atelectasis bilaterally. There is a small amount of dependent mucus within the trachea. Pleura: No pneumothorax or pleural effusions. Heart: Heart size is normal. No pericardial effusion. Thoracic Vessels: The aorta and pulmonary arteries are normal in size. Mediastinum and Jenn: No lymphadenopathy by size criteria. Esophagus: There is mild concentric wall thickening within the distal esophagus. No hiatal hernia. ABDOMEN: Liver: No mass lesion. Gallbladder: Within normal limits without calcified gallstones. Biliary ducts: No biliary ductal dilatation. Pancreas: Unremarkable. Spleen: Normal in size. Adrenal Glands: No adrenal nodules. Kidneys and Ureters: No hydronephrosis. No perinephric fluid collections or fat stranding. Stomach and Bowel: Stomach, small bowel loops, and colon are normal in caliber and wall thickness. Peritoneum: No abnormal intraperitoneal fluid. No free air. Ventral Wall: No hernia. Abdominal Nodes: No retroperitoneal or mesenteric adenopathy by size criteria. Vessels: Aorta and inferior vena cava are normal in size. PELVIS: Pelvic Organs: Unremarkable. Bladder: Unremarkable. Pelvic Nodes: No enlarged lymph nodes. Miscellaneous: No inguinal hernias are seen. Bones: There is mild multilevel degenerative disc disease most prominent at T11-T12. Minimal anterolisthesis demonstrated at L4-5. There is minimal retrolisthesis at L5-S1. Visualized osseous structures demonstrate no suspicious focal lesions. IMPRESSION: 1. No definite acute abnormality in the chest, abdomen, or pelvis. 2. Dependent atelectasis in the lungs without acute consolidation. 3. No definite evidence of pyelonephritis. 4. No CT evidence of discitis osteomyelitis. Dictated by: Edson Sawyer M.D. on 09/26/2022 at 23:59 Approved by: Edson Sawyer M.D. on 09/27/2022 at 0:09
[2022-09-26 21:05] LABS: Acetaminophen < 10 ug/mL (10-30); Salicylate < 1.0 mg/dL (<20)
[2022-09-26] MEDS: PIPERACILLIN/TAZO 4.5 GM in SODIUM CHLORIDE 0.9% 100 ML IV (21:27)
--- NOTE | 2022-09-26 21:52 | PC.NURSE ---
MARKETING CONTENT COORDINATOR note: Pepin patient yelling, went into room and asked how I could help. He said I'm in fucking pain! No one has seen me! I told him that we are a busy ER and we are currently in a room with another more critical patient and we would be in when we could. Well I'm in fucking pain! I told him Hey so hospital policy is you don't curse at me. Number one. That's abusive language. I will--- Patient cut me off and told me well then you can fucking leave. I nodded, left the room, and told staff about abusive language. Patient has call light within reach will continue to monitor.
[2022-09-26] MEDS: VANCOMYCIN 1,250 MG/250 ML PIGGYBACK 250 MG IV (22:32)
--- NOTE | 2022-09-26 22:46 | PC.NURSE ---
This RN went to patient room to find there there was a strong smell and immediately asked the patient what it was. The patient stated that he was smoked Fentanyl for pain. The patient had a small steel cylinder and a crinkled foil on his gurney. This RN immediately removed them and all patient belongings from the room and placed in patient locked cabinet. Patient immediately reconnected to vital signs equipment he removed. Dr. Perez immediately notified.
--- NOTE | 2022-09-26 22:57 | PC.NURSE ---
RADIO OPERATOR GROUND Note: We had an emergency in the ER that required many people's attention. While the nurses were attending the emergency, this pt was screaming and yelling for a nurse. This RADIO OPERATOR GROUND went into the room and asked if the patient needed anything. Pt stated that they needed me to give them meds to help with their pain. This RADIO OPERATOR GROUND stated that they cannot administer meds and pt got mad. Pt stated that they wanted a different nurse.
[2022-09-27] VITALS (69 sets, daily range): BP systolic 136–180; BP diastolic 74–105; PULSE 56–92; RESP 11–20; TEMP 35.9–38.2; O2SAT 84–100; BMI 24.4
[2022-09-27] MEDS: SODIUM CHLORIDE 0.9% 1,000 ML 100 ML IV ×3 (01:59→21:18)
[2022-09-27] MEDS: CEFEPIME 1 GM in SODIUM CHLORIDE 0.9% 100 ML IV ×2 (02:00→13:09)
[2022-09-27 04:41] LABS: Appearance Urine UA CLEAR; Bilirubin Urine UA NEGATIVE (NEGATIVE); Color Urine UA YELLOW; Glucose Urine UA NEGATIVE (Negative); Ketones Urine UA TRACE (NEGATIVE); Leukocyte Esterase Urine UA NEGATIVE (NEGATIVE); Nitrite Urine UA NEGATIVE (Negative); Occult Blood Urine UA NEGATIVE (Negative); Protein Urine UA NEGATIVE (Negative); Specific Gravity Urine UA 1.015 (1.000-1.035); Urobilinogen Urine UA 0.2 E.U./dL (0.2); pH Urine UA 6.5 (4.5-8.0)
[2022-09-27] MEDS: ACETAMINOPHEN 325 MG TABLET 650 MG PO (04:52)
[2022-09-27 04:53] LABS: Ur Creatinine Normal (Normal); Ur Specific Gravity Normal (Normal); Urine pH Normal (Normal)
[2022-09-27 04:54] LABS: UR Morphine/Opiate cutoff 300 Negative (Negative); Urine Amphetamines Positive (Negative); Urine Barbiturates Negative (Negative); Urine Benzodiazepines Negative (Negative); Urine Cocaine Negative (Negative); Urine MDMA Negative (Negative); Urine Methadone Negative (Negative); Urine Methamphetamines Positive (Negative); Urine Oxycodone Negative (Negative); Urine Phencyclidine Negative (Negative); Urine Tetrahydrocannabinol Positive (Negative); Urine Tricyclic Antidepressant Negative (Negative)
[2022-09-27 05:01] LABS: Bacteria Urine None Seen; Culture Indicated Urine Cult Not Indicated; RBC Urine None Seen (0-5/HPF); WBC Urine None Seen (0-5/HPF)
[2022-09-27] MEDS: HYDROCODONE/ACET 5/325 TABLET 1 TAB PO ×4 (05:33→21:17)
--- NOTE | 2022-09-27 05:45 | PM.HP.1 ---
History of Present Illness History of Present Illness Date Patient Seen: 09/27/22 Time Patient Seen: 05:30 Chief complaint: Thinks kidney infection Narrative: Mr. Capps is a 47M with H chronic left leg ulcer, unstable housing, drug abuse who presents to the hospital primarily complaining of back pain. He actually thought he had kidney pain as his pain was in his flanks, he denies spinal tenderness. He does not have abdominal pain, nausea, vomiting shortness of breath, or cough. He presented to the ED and was acting belligerent and evasive initially. 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 Later he was found by nurse to be smoking, according to the patient, fentanyl. He was noted to be screaming and cursing at staff. Vitals were notable fever to 100.9, heart rate in the 100s, respiratory rate in the 20s, sats 100% on room air. Labs notable for WBC 23.4, hgb 11, plts 421. Na 131, creatinine 0.88. INR 1.4. Procal 0.18. Lactate 0.7. Urine drug screen positive for meth. Chest xray with no acute process. CT chest, abdomen, pelvis was performed for concern for back pain and showed no evidence of pyelnephritis, and no evidence of osteomyelitis or diskitis. He was given antibiotics and fluid and admitted for further treatment. Upon arriving on the floor he was discussing leaving AMA if he did not get opiates. Patient History Medical History Cellulitis of left leg Chronic wound of extremity COVID-19 virus infection Family & Social History Social History: household members other Safety & Behavioral: Feels Safe in Current Yes Environment Been Physically Hurt or No Threatened By a Person Tobacco & Substance use: Smoking Status Current every day smoker alcohol intake never alcohol intake frequency 0-2 drinks per day Substance Use Type marijuana,crack/cocaine Meds Home Medications and Allergies Allergies Allergy/AdvReac Type Severity Reaction Status Date / Time No Known Drug Allergies Allergy Verified 09/26/22 19:07 Review of Systems Review of Systems Narrative: 14 systems reviewed and negative aside from what is noted in HPI Exam Vital Signs (past 8 hours): - 09/26/22 21:50 09/26/22 21:50 09/26/22 21:52 Temperature Pulse Rate 103 H 104 H Respiratory Rate 23 38 H Blood Pressure 137/77 Pulse Oximetry Oxygen Delivery Method Room Air Oxygen Flow Rate Fraction of Inspired Oxygen 09/26/22 22:05 09/26/22 22:06 09/26/22 22:10 Temperature Pulse Rate 100 H Respiratory Rate Blood Pressure 133/68 116/65 Pulse Oximetry 92 Oxygen Delivery Method Nasal Cannula Oxygen Flow Rate 2 Fraction of Inspired Oxygen 09/26/22 22:10 09/26/22 22:15 09/26/22 22:15 Temperature Pulse Rate 97 H 99 H Respiratory Rate 15 Blood Pressure 131/81 Pulse Oximetry 93 92 Oxygen Delivery Method Nasal Cannula Oxygen Flow Rate 2 Fraction of Inspired Oxygen 09/26/22 22:20 09/26/22 22:20 09/26/22 22:25 Temperature Pulse Rate 99 H Respiratory Rate 14 Blood Pressure 133/84 135/86 Pulse Oximetry 93 Oxygen Delivery Method Oxygen Flow Rate Fraction of Inspired Oxygen 09/26/22 22:25 09/26/22 22:30 09/26/22 22:30 Temperature Pulse Rate 98 H 97 H Respiratory Rate 16 16 Blood Pressure 138/89 Pulse Oximetry 93 93 Oxygen Delivery Method Oxygen Flow Rate Fraction of Inspired Oxygen 09/26/22 22:35 09/26/22 22:35 09/26/22 22:40 Temperature Pulse Rate 97 H Respiratory Rate 16 Blood Pressure 137/89 138/90 Pulse Oximetry 93 Oxygen Delivery Method Oxygen Flow Rate Fraction of Inspired Oxygen 09/26/22 22:40 09/26/22 22:45 09/26/22 22:45 Temperature Pulse Rate 96 H 95 H Respiratory Rate 17 15 Blood Pressure 141/86 H Pulse Oximetry 93 94 Oxygen Delivery Method Oxygen Flow Rate Fraction of Inspired Oxygen 09/26/22 22:50 09/26/22 22:50 09/26/22 22:55 Temperature Pulse Rate 95 H Respiratory Rate 16 Blood Pressure 141/85 H 139/86 Pulse Oximetry 93 Oxygen Delivery Method Oxygen Flow Rate Fraction of Inspired Oxygen 09/26/22 22:55 09/26/22 23:00 09/26/22 23:00 Temperature Pulse Rate 95 H 94 H Respiratory Rate 16 15 Blood Pressure 138/87 Pulse Oximetry 93 93 Oxygen Delivery Method Oxygen Flow Rate Fraction of Inspired Oxygen 09/26/22 23:05 09/26/22 23:05 09/26/22 23:10 Temperature Pulse Rate 93 H Respiratory Rate 16 Blood Pressure 141/88 H 139/87 Pulse Oximetry 93 Oxygen Delivery Method Oxygen Flow Rate Fraction of Inspired Oxygen 09/26/22 23:10 09/26/22 23:15 09/26/22 23:15 Temperature Pulse Rate 93 H 93 H Respiratory Rate 15 15 Blood Pressure 148/86 H Pulse Oximetry 93 93 Oxygen Delivery Method Oxygen Flow Rate Fraction of Inspired Oxygen 09/26/22 23:20 09/26/22 23:32 09/26/22 23:33 Temperature Pulse Rate 90 90 Respiratory Rate 14 18 Blood Pressure Pulse Oximetry 94 93 94 Oxygen Delivery Method Oxygen Flow Rate Fraction of Inspired Oxygen 09/26/22 23:33 09/26/22 23:35 09/26/22 23:35 Temperature Pulse Rate 90 Respiratory Rate 14 Blood Pressure 158/86 H 149/83 H Pulse Oximetry 94 Oxygen Delivery Method Oxygen Flow Rate Fraction of Inspired Oxygen 09/26/22 23:40 09/26/22 23:40 09/26/22 23:45 Temperature Pulse Rate 89 Respiratory Rate 13 Blood Pressure 143/81 H 145/81 H Pulse Oximetry 94 Oxygen Delivery Method Oxygen Flow Rate Fraction of Inspired Oxygen 09/26/22 23:45 09/26/22 23:50 09/26/22 23:50 Temperature Pulse Rate 89 88 Respiratory Rate 14 14 Blood Pressure 145/78 H Pulse Oximetry 94 94 Oxygen Delivery Method Oxygen Flow Rate Fraction of Inspired Oxygen 09/26/22 23:55 09/26/22 23:55 09/27/22 00:00 Temperature Pulse Rate 88 Respiratory Rate 18 Blood Pressure 153/85 H 155/83 H Pulse Oximetry 93 Oxygen Delivery Method Oxygen Flow Rate Fraction of Inspired Oxygen 09/27/22 00:00 09/27/22 00:05 09/27/22 00:05 Temperature Pulse Rate 88 88 Respiratory Rate 15 14 Blood Pressure 153/85 H Pulse Oximetry 94 94 Oxygen Delivery Method Oxygen Flow Rate Fraction of Inspired Oxygen 09/27/22 00:10 09/27/22 00:10 09/27/22 00:15 Temperature Pulse Rate 88 88 Respiratory Rate 16 15 Blood Pressure 167/89 H Pulse Oximetry 94 94 Oxygen Delivery Method Oxygen Flow Rate Fraction of Inspired Oxygen 09/27/22 00:16 09/27/22 00:16 09/27/22 00:20 Temperature Pulse Rate 88 Respiratory Rate 14 Blood Pressure 152/90 H 161/97 H Pulse Oximetry 94 Oxygen Delivery Method Oxygen Flow Rate Fraction of Inspired Oxygen 09/27/22 00:20 09/27/22 00:25 09/27/22 00:25 Temperature Pulse Rate 89 90 Respiratory Rate 18 17 Blood Pressure 144/74 H Pulse Oximetry 93 Oxygen Delivery Method Nasal Cannula Oxygen Flow Rate 2 Fraction of Inspired Oxygen 09/27/22 00:30 09/27/22 00:30 09/27/22 00:35 Temperature Pulse Rate 89 Respiratory Rate 13 Blood Pressure 145/78 H 152/81 H Pulse Oximetry Oxygen Delivery Method Oxygen Flow Rate Fraction of Inspired Oxygen 09/27/22 00:35 09/27/22 00:40 09/27/22 00:41 Temperature Pulse Rate 88 83 Respiratory Rate 14 15 Blood Pressure 167/95 H Pulse Oximetry 97 Oxygen Delivery Method Oxygen Flow Rate Fraction of Inspired Oxygen 09/27/22 00:41 09/27/22 00:45 09/27/22 00:45 Temperature Pulse Rate 84 85 Respiratory Rate 15 15 Blood Pressure 160/86 H Pulse Oximetry 97 97 Oxygen Delivery Method Oxygen Flow Rate Fraction of Inspired Oxygen 09/27/22 00:50 09/27/22 00:50 09/27/22 00:55 Temperature Pulse Rate 85 Respiratory Rate 15 Blood Pressure 149/88 H 146/89 H Pulse Oximetry 97 Oxygen Delivery Method Oxygen Flow Rate Fraction of Inspired Oxygen 09/27/22 00:55 09/27/22 01:00 09/27/22 01:00 Temperature Pulse Rate 85 85 Respiratory Rate 17 16 Blood Pressure 154/89 H Pulse Oximetry 98 96 Oxygen Delivery Method Oxygen Flow Rate Fraction of Inspired Oxygen 09/27/22 01:05 09/27/22 01:05 09/27/22 01:10 Temperature Pulse Rate 86 Respiratory Rate 19 Blood Pressure 159/95 H 158/90 H Pulse Oximetry 96 Oxygen Delivery Method Oxygen Flow Rate Fraction of Inspired Oxygen 09/27/22 01:10 09/27/22 01:15 09/27/22 01:15 Temperature Pulse Rate 86 87 Respiratory Rate 15 20 Blood Pressure 153/89 H Pulse Oximetry 93 93 Oxygen Delivery Method Oxygen Flow Rate Fraction of Inspired Oxygen 09/27/22 01:20 09/27/22 01:20 09/27/22 01:40 Temperature Pulse Rate 87 Respiratory Rate 17 Blood Pressure 180/105 H Pulse Oximetry 97 100 Oxygen Delivery Method Nasal Cannula Oxygen Flow Rate 2 Fraction of Inspired Oxygen 09/27/22 01:38 09/27/22 02:06 09/27/22 01:54 Temperature 98.8 F Pulse Rate 86 Respiratory Rate 15 Blood Pressure 180/92 H 156/89 H Pulse Oximetry 99 Oxygen Delivery Method Nasal Cannula Oxygen Flow Rate 2 Fraction of Inspired Oxygen 09/27/22 03:28 09/27/22 04:52 09/27/22 02:06 Temperature 100.7 F H 100.7 F H Pulse Rate 92 H 89 Respiratory Rate 16 Blood Pressure 165/90 H Pulse Oximetry 96 94 Oxygen Delivery Method Nasal Cannula Oxygen Flow Rate 2 Fraction of Inspired Oxygen 28 09/27/22 05:38 Temperature Pulse Rate Respiratory Rate Blood Pressure Pulse Oximetry 96 Oxygen Delivery Method Nasal Cannula Oxygen Flow Rate 1 Fraction of Inspired Oxygen Fraction of Inspired Oxygen 28 SaO2/FiO2 Ratio 342 Oxygen Delivery Method Nasal Cannula Oxygen Flow Rate 1 Narrative Exam Narrative: GEN: no acute distress HEENT: moist mucous membranes, PERRL NECK: trachea midline, no JVD PULM: clear bilaterally, no wheezes, rhonchi, rales CV: regular rate and rhythm, no murmurs ABD: soft, nontender, nondistended, no organomegaly, normal bowel sounds EXT: warm and well perfused, chronic venous stasis changes on legs with multiple ulcers on bilateral legs drainng serosanguinous fluid, with tenderness and erythema NEURO: awake, alert, oriented, no focal deficits Objective Labs 09/26/22 19:50 09/26/22 19:50 Labs: Laboratory Results - last 24 hr 09/26/22 09/26/22 09/26/22 19:50 19:50 19:50 WBC 23.4 H RBC 3.84 L Hgb 11.0 L Hct 33.2 L MCV 86.5 MCH 28.6 MCHC 33.0 RDW 14.8 Plt Count 421 H Neut % (Auto) 91.8 H Lymph % (Auto) 4.0 L [place] % (Auto) 3.7 Eos % (Auto) 0.0 L Baso % (Auto) 0.5 Neut # (Auto) 06022 H Lymph # (Auto) 900 L [place] # (Auto) 900 Eos # (Auto) 0 Baso # (Auto) 100 PT 16.1 H INR 1.4 H APTT 33 Sodium 131 L Potassium 4.1 Chloride 95 L Carbon Dioxide 28 BUN 15 Creatinine 0.88 Estimated GFR > 60 BUN/Creatinine Ratio 17.0 Glucose 114 H Lactate Calcium 8.5 Total Bilirubin 0.6 AST 21 ALT 17 Alkaline Phosphatase 101 Total Protein 7.6 Albumin 3.5 Globulin 4.1 Albumin/Globulin Ratio 0.9 L Lipase 17 L Procalcitonin 0.18 Urine Color Urine Appearance Urine pH Ur Specific [place] Urine Protein Urine Glucose (UA) Urine Ketones Urine Occult Blood Urine Nitrate Urine Bilirubin Urine Urobilinogen Ur Leukocyte Esterase Urine RBC Urine WBC Urine Bacteria Ur Culture Indicated? Salicylates U Opiates 300ng/mL cut Ur Oxycodone Screen Urine Methadone Screen Acetaminophen Ur Barbiturates Screen U Tricyclic Antidepress Ur Phencyclidine Scrn Ur Amphetamines Screen U Methamphetamines Scrn Ur MDMA Scrn (Ecstasy) U Benzodiazepines Scrn Urine Cocaine Screen U Marijuana (THC) Screen SARS-CoV-2 (PCR) 09/26/22 09/26/22 09/26/22 19:50 19:50 19:55 WBC RBC Hgb Hct MCV MCH MCHC RDW Plt Count Neut % (Auto) Lymph % (Auto) [place] % (Auto) Eos % (Auto) Baso % (Auto) Neut # (Auto) Lymph # (Auto) [place] # (Auto) Eos # (Auto) Baso # (Auto) PT INR APTT Sodium Potassium Chloride Carbon Dioxide BUN Creatinine Estimated GFR BUN/Creatinine Ratio Glucose Lactate 0.7 Calcium Total Bilirubin AST ALT Alkaline Phosphatase Total Protein Albumin Globulin Albumin/Globulin Ratio Lipase Procalcitonin Urine Color Urine Appearance Urine pH Ur Specific [place] Urine Protein Urine Glucose (UA) Urine Ketones Urine Occult Blood Urine Nitrate Urine Bilirubin Urine Urobilinogen Ur Leukocyte Esterase Urine RBC Urine WBC Urine Bacteria Ur Culture Indicated? Salicylates < 1.0 U Opiates 300ng/mL cut Ur Oxycodone Screen Urine Methadone Screen Acetaminophen < 10 Ur Barbiturates Screen U Tricyclic Antidepress Ur Phencyclidine Scrn Ur Amphetamines Screen U Methamphetamines Scrn Ur MDMA Scrn (Ecstasy) U Benzodiazepines Scrn Urine Cocaine Screen U Marijuana (THC) Screen SARS-CoV-2 (PCR) Negative 09/27/22 09/27/22 04:31 04:31 WBC RBC Hgb Hct MCV MCH MCHC RDW Plt Count Neut % (Auto) Lymph % (Auto) [place] % (Auto) Eos % (Auto) Baso % (Auto) Neut # (Auto) Lymph # (Auto) [place] # (Auto) Eos # (Auto) Baso # (Auto) PT INR APTT Sodium Potassium Chloride Carbon Dioxide BUN Creatinine Estimated GFR BUN/Creatinine Ratio Glucose Lactate Calcium Total Bilirubin AST ALT Alkaline Phosphatase Total Protein Albumin Globulin Albumin/Globulin Ratio Lipase Procalcitonin Urine Color Yellow Urine Appearance Clear Urine pH 6.5 Ur Specific [place] 1.015 Urine Protein Negative Urine Glucose (UA) Negative Urine Ketones Trace H Urine Occult Blood Negative Urine Nitrate Negative Urine Bilirubin Negative Urine Urobilinogen 0.2 Ur Leukocyte Esterase Negative Urine RBC None seen Urine WBC None seen Urine Bacteria None seen Ur Culture Indicated? Cult not indicated Salicylates U Opiates 300ng/mL cut Negative Ur Oxycodone Screen Negative Urine Methadone Screen Negative Acetaminophen Ur Barbiturates Screen Negative U Tricyclic Antidepress Negative Ur Phencyclidine Scrn Negative Ur Amphetamines Screen Positive H U Methamphetamines Scrn Positive H Ur MDMA Scrn (Ecstasy) Negative U Benzodiazepines Scrn Negative Urine Cocaine Screen Negative U Marijuana (THC) Screen Positive H SARS-CoV-2 (PCR) Assessment & Plan Assessment & Plan narrative: Mr. Capps is a 46M with chronic leg wound admitted with cellulitis. 1. Acute cellulitis -started on IV antibiotics and vancomycin and cefepime -await cultures -deescalate and switch to oral antibiotics as able -SIRS positive, with no organ dysfunction on admission -would recommend wound care on discharge -has been having back pain, CT showed no evidence of discitis or osteomyelitis, think spinal source unlikely -this morning he is refusing repeat lab draw 2. Drug abuse -found to be meth positive on urine drug screen -admitted to smoking fentanyl in the hospital I have discussed plan with the patient. I have discussed plan of care with ED physician and bedside nurse. I have reviewed labs, chest xray, and CT imaging. CODE: Full Proxy: Marii Paz I have utilized all available resources to reconcile the patient's home medications Time Spent With Patient Critical Care time: I spent a total of [] minutes of critical care time on this patient's care today; this time is exclusive of procedural time. Quality VTE Deep Vein Thrombosis/Pulmonary Embolism Present on Admission: No MIPS - Meds 'Current medications' to include all prescriptions, [id number] products, herbals, cannabis/cannabidiol products, and vitamin/mineral/dietary (nutritional) supplements. I have utilized all available resources to obtain, update, or review the patient?s current medications. [If Yes, STOP here]: Yes
[2022-09-27] MEDS: VANCOMYCIN 1,250 MG/250 ML PIGGYBACK 167 MG IV ×3 (07:51→22:53)
[2022-09-27] MEDS: HEPARIN 5,000 UNIT/ML VIAL 5000 UNIT SUBCUT ×2 (09:41→20:22)
[2022-09-27 10:18] LABS: Add Manual Diff / Slide Review NO; Basophils Absolute Auto 100 /uL (0-100); Basophils Percent Auto 0.5 % (0-2); Eosinophils Absolute Auto 100 /uL (0-450); Eosinophils Percent Auto 0.9 % (2-4); Hematocrit 33.6 % (41-53); Hemoglobin 11.1 g/dL (13.5-17.5); Lymphocytes Absolute Auto 1400 /uL (1100-4500); Lymphocytes Percent Auto 11.3 % (25-40); Mean Corpuscular HGB Conc 33.1 % (30-36); Mean Corpuscular Hemoglobin 28.8 PG (26-34); Mean Corpuscular Volume 86.8 fL (80-100); Monocytes Absolute Auto 900 /uL (0-900); Neutrophils Absolute Auto 10100 /uL (1500-7000); Neutrophils Percent Auto 80.3 % (50-75); Platelet Count 357 X10^3/uL (150-400); Red Blood Cell Count 3.87 X10^6/uL (4.5-5.9); Red Cell Distribution Width 15.5 % (11.6-14.8); White Blood Cell Count 12.5 X10^3/uL (4.5-11.0)
[2022-09-27 10:28] LABS: Blood Urea Nitrogen 14 mg/dL (9-20); Carbon Dioxide 29 mmol/L (22-32); Chloride 100 mmol/L (98-107); HEMOLYSIS < 15 (0-50); Potassium 4.1 mmol/L (3.4-5.1); Sodium 135 mmol/L (137-145)
[2022-09-27 10:29] LABS: BUN Creatinine Ratio 16.9 (6-22); Calcium 8.2 mg/dL (8.4-10.2); Estimated Glomerular Filt Rate > 60 mL/min (>60); Glucose 127 mg/dL (70-100)
[2022-09-27 11:03] LABS: MRSA (Nasal) PCR DETECTED (Not Detect)
--- NOTE | 2022-09-27 12:49 | P.PN_ITS ---
Subjective Subjective Interval history: Narrative not obtained, patient sedated. Exam Vital Signs (past 8 hours): - 09/27/22 04:52 09/27/22 05:38 09/27/22 06:04 Temperature 100.7 F H 99.4 F Pulse Rate 92 H Respiratory Rate 12 Blood Pressure 136/75 Pulse Oximetry 96 98 Oxygen Delivery Method Nasal Cannula Oxygen Flow Rate 1 1 09/27/22 08:16 09/27/22 09:00 09/27/22 10:00 Temperature 98.8 F 97.7 F Pulse Rate 77 72 Respiratory Rate 12 18 Blood Pressure 141/79 H 141/79 H Pulse Oximetry 99 98 97 Oxygen Delivery Method Room Air Oxygen Flow Rate 0 0 Fraction of Inspired Oxygen 28 SaO2/FiO2 Ratio 342 Oxygen Delivery Method Room Air Oxygen Flow Rate 0 Narrative Exam Narrative: ? Sleeping, no distress. Head is atraumatic.? Unkempt, poor dentition. ? Neck is supple with normal range of motion, normal thyroid.? No adenopathy. ? Lungs are clear to auscultation with normal rate and effort. ? Heart is regular in rate and rhythm, with out murmur. ? Abdomen is soft, non-distended.? No focal tenderness, guarding or rebound. ? Extremities are free of edema with good pedal pulses. ? Skin: legs are red with multiple excoriations. Tattoos. ? Muscles with normal tone, joints are negative for deformity. ? Objective Labs 09/27/22 10:05 09/27/22 10:05 Labs: Laboratory Results - last 24 hr 09/26/22 09/26/22 09/26/22 19:50 19:50 19:50 WBC 23.4 H RBC 3.84 L Hgb 11.0 L Hct 33.2 L MCV 86.5 MCH 28.6 MCHC 33.0 RDW 14.8 Plt Count 421 H Neut % (Auto) 91.8 H Lymph % (Auto) 4.0 L [place] % (Auto) 3.7 Eos % (Auto) 0.0 L Baso % (Auto) 0.5 Neut # (Auto) 92530 H Lymph # (Auto) 900 L [place] # (Auto) 900 Eos # (Auto) 0 Baso # (Auto) 100 PT 16.1 H INR 1.4 H APTT 33 Sodium 131 L Potassium 4.1 Chloride 95 L Carbon Dioxide 28 BUN 15 Creatinine 0.88 Estimated GFR > 60 BUN/Creatinine Ratio 17.0 Glucose 114 H Lactate Calcium 8.5 Total Bilirubin 0.6 AST 21 ALT 17 Alkaline Phosphatase 101 Total Protein 7.6 Albumin 3.5 Globulin 4.1 Albumin/Globulin Ratio 0.9 L Lipase 17 L Procalcitonin 0.18 Urine Color Urine Appearance Urine pH Ur Specific [place] Urine Protein Urine Glucose (UA) Urine Ketones Urine Occult Blood Urine Nitrate Urine Bilirubin Urine Urobilinogen Ur Leukocyte Esterase Urine RBC Urine WBC Urine Bacteria Ur Culture Indicated? Nasal Screen MRSA (PCR) Salicylates U Opiates 300ng/mL cut Ur Oxycodone Screen Urine Methadone Screen Acetaminophen Ur Barbiturates Screen U Tricyclic Antidepress Ur Phencyclidine Scrn Ur Amphetamines Screen U Methamphetamines Scrn Ur MDMA Scrn (Ecstasy) U Benzodiazepines Scrn Urine Cocaine Screen U Marijuana (THC) Screen SARS-CoV-2 (PCR) 09/26/22 09/26/22 09/26/22 19:50 19:50 19:55 WBC RBC Hgb Hct MCV MCH MCHC RDW Plt Count Neut % (Auto) Lymph % (Auto) [place] % (Auto) Eos % (Auto) Baso % (Auto) Neut # (Auto) Lymph # (Auto) [place] # (Auto) Eos # (Auto) Baso # (Auto) PT INR APTT Sodium Potassium Chloride Carbon Dioxide BUN Creatinine Estimated GFR BUN/Creatinine Ratio Glucose Lactate 0.7 Calcium Total Bilirubin AST ALT Alkaline Phosphatase Total Protein Albumin Globulin Albumin/Globulin Ratio Lipase Procalcitonin Urine Color Urine Appearance Urine pH Ur Specific [place] Urine Protein Urine Glucose (UA) Urine Ketones Urine Occult Blood Urine Nitrate Urine Bilirubin Urine Urobilinogen Ur Leukocyte Esterase Urine RBC Urine WBC Urine Bacteria Ur Culture Indicated? Nasal Screen MRSA (PCR) Salicylates < 1.0 U Opiates 300ng/mL cut Ur Oxycodone Screen Urine Methadone Screen Acetaminophen < 10 Ur Barbiturates Screen U Tricyclic Antidepress Ur Phencyclidine Scrn Ur Amphetamines Screen U Methamphetamines Scrn Ur MDMA Scrn (Ecstasy) U Benzodiazepines Scrn Urine Cocaine Screen U Marijuana (THC) Screen SARS-CoV-2 (PCR) Negative 09/27/22 09/27/22 09/27/22 04:31 04:31 09:45 WBC RBC Hgb Hct MCV MCH MCHC RDW Plt Count Neut % (Auto) Lymph % (Auto) [place] % (Auto) Eos % (Auto) Baso % (Auto) Neut # (Auto) Lymph # (Auto) [place] # (Auto) Eos # (Auto) Baso # (Auto) PT INR APTT Sodium Potassium Chloride Carbon Dioxide BUN Creatinine Estimated GFR BUN/Creatinine Ratio Glucose Lactate Calcium Total Bilirubin AST ALT Alkaline Phosphatase Total Protein Albumin Globulin Albumin/Globulin Ratio Lipase Procalcitonin Urine Color Yellow Urine Appearance Clear Urine pH 6.5 Ur Specific [place] 1.015 Urine Protein Negative Urine Glucose (UA) Negative Urine Ketones Trace H Urine Occult Blood Negative Urine Nitrate Negative Urine Bilirubin Negative Urine Urobilinogen 0.2 Ur Leukocyte Esterase Negative Urine RBC None seen Urine WBC None seen Urine Bacteria None seen Ur Culture Indicated? Cult not indicated Nasal Screen MRSA (PCR) Detected H Salicylates U Opiates 300ng/mL cut Negative Ur Oxycodone Screen Negative Urine Methadone Screen Negative Acetaminophen Ur Barbiturates Screen Negative U Tricyclic Antidepress Negative Ur Phencyclidine Scrn Negative Ur Amphetamines Screen Positive H U Methamphetamines Scrn Positive H Ur MDMA Scrn (Ecstasy) Negative U Benzodiazepines Scrn Negative Urine Cocaine Screen Negative U Marijuana (THC) Screen Positive H SARS-CoV-2 (PCR) 09/27/22 09/27/22 10:05 10:05 WBC 12.5 H RBC 3.87 L Hgb 11.1 L Hct 33.6 L MCV 86.8 MCH 28.8 MCHC 33.1 RDW 15.5 H Plt Count 357 Neut % (Auto) 80.3 H Lymph % (Auto) 11.3 L [place] % (Auto) 7.0 Eos % (Auto) 0.9 L Baso % (Auto) 0.5 Neut # (Auto) 32574 H Lymph # (Auto) 1400 [place] # (Auto) 900 Eos # (Auto) 100 Baso # (Auto) 100 PT INR APTT Sodium 135 L Potassium 4.1 Chloride 100 Carbon Dioxide 29 BUN 14 Creatinine 0.83 Estimated GFR > 60 BUN/Creatinine Ratio 16.9 Glucose 127 H Lactate Calcium 8.2 L Total Bilirubin AST ALT Alkaline Phosphatase Total Protein Albumin Globulin Albumin/Globulin Ratio Lipase Procalcitonin Urine Color Urine Appearance Urine pH Ur Specific [place] Urine Protein Urine Glucose (UA) Urine Ketones Urine Occult Blood Urine Nitrate Urine Bilirubin Urine Urobilinogen Ur Leukocyte Esterase Urine RBC Urine WBC Urine Bacteria Ur Culture Indicated? Nasal Screen MRSA (PCR) Salicylates U Opiates 300ng/mL cut Ur Oxycodone Screen Urine Methadone Screen Acetaminophen Ur Barbiturates Screen U Tricyclic Antidepress Ur Phencyclidine Scrn Ur Amphetamines Screen U Methamphetamines Scrn Ur MDMA Scrn (Ecstasy) U Benzodiazepines Scrn Urine Cocaine Screen U Marijuana (THC) Screen SARS-CoV-2 (PCR) PFSH Medical History Cellulitis of left leg Chronic wound of extremity COVID-19 virus infection Social History household members: other Smoking Status: Current every day smoker alcohol intake: never Assessment & Plan Assessment and plan Plan Review of Systems Review of Systems Narrative: 14 systems reviewed and negative aside from what is noted in HPI Exam Vital Signs (past 8 hours): - ? 09/26/2320:50 09/26/2320:50 09/26/2320:52 Temperature ? ? ? Pulse Rate ? 103 H 104 H Respiratory Rate ? 23 38 H Blood Pressure 137/77 ? ? Pulse Oximetry ? ? ? Oxygen Delivery Method ? ? Room Air Oxygen Flow Rate ? ? ? Fraction of Inspired Oxygen ? 09/26/2321:05 09/26/2321:06 09/26/2321:10 Temperature ? ? ? Pulse Rate ? 100 H ? Respiratory Rate ? ? ? Blood Pressure 133/68 ? 116/65 Pulse Oximetry ? 92 ? Oxygen Delivery Method ? Nasal Cannula ? Oxygen Flow Rate ? 2 ? Fraction of Inspired Oxygen ? 09/26/2321:10 09/26/2321:15 09/26/2321:15 Temperature ? ? ? Pulse Rate 97 H ? 99 H Respiratory Rate ? ? 15 Blood Pressure ? 131/81 ? Pulse Oximetry 93 ? 92 Oxygen Delivery Method Nasal Cannula ? ? Oxygen Flow Rate 2 ? ? Fraction of Inspired Oxygen ? 09/26/2321:20 09/26/2321:20 09/26/2321:25 Temperature ? ? ? Pulse Rate ? 99 H ? Respiratory Rate ? 14 ? Blood Pressure 133/84 ? 135/86 Pulse Oximetry ? 93 ? Oxygen Delivery Method ? ? ? Oxygen Flow Rate ? ? ? Fraction of Inspired Oxygen ? 09/26/2321:25 09/26/2321:30 09/26/2321:30 Temperature ? ? ? Pulse Rate 98 H ? 97 H Respiratory Rate 16 ? 16 Blood Pressure ? 138/89 ? Pulse Oximetry 93 ? 93 Oxygen Delivery Method ? ? ? Oxygen Flow Rate ? ? ? Fraction of Inspired Oxygen ? 09/26/2321:35 09/26/2321:35 09/26/2321:40 Temperature ? ? ? Pulse Rate ? 97 H ? Respiratory Rate ? 16 ? Blood PressureB 137/89 ? 138/90 Pulse Oximetry ? 93 ? Oxygen Delivery Method ? ? ? Oxygen Flow Rate ? ? ? Fraction of Inspired Oxygen ? 09/26/2321:40 09/26/2321:45 09/26/2321:45 Temperature ? ? ? Pulse Rate 96 H ? 95 H Respiratory Rate 17 ? 15 Blood Pressure ? 141/86 H ? Pulse Oximetry 93 ? 94 Oxygen Delivery Method ? ? ? Oxygen Flow Rate ? ? ? Fraction of Inspired Oxygen ? 09/26/2321:50 09/26/2321:50 09/26/2321:55 Temperature ? ? ? Pulse Rate ? 95 H ? Respiratory Rate ? 16 ? Blood Pressure 141/85 H ? 139/86 Pulse Oximetry ? 93 ? Oxygen Delivery Method ? ? ? Oxygen Flow Rate ? ? ? Fraction of Inspired Oxygen ?B ? ? ? 09/26/2321:55 09/26/2322:00 09/26/2322:00 Temperature ? ? ? Pulse Rate 95 H ? 94 H Respiratory Rate 16 ? 15 Blood Pressure ? 138/87 ? Pulse Oximetry 93 ? 93 Oxygen Delivery Method ? ? ? Oxygen Flow Rate ? ? ? Fraction of Inspired Oxygen ? 09/26/2322:05 09/26/2322:05 09/26/2322:10 Temperature ? ? ? Pulse Rate ? 93 H ? Respiratory Rate ? 16 ? Blood Pressure 141/88 H ? 139/87 Pulse Oximetry ? 93 ? Oxygen Delivery Method ? ? ? Oxygen Flow Rate ? ? ? Fraction of Inspired Oxygen ? 09/26/2322:10 09/26/2322:15 09/26/2322:15 Temperature ? ? ? Pulse Rate 93 H ? 93 H Respiratory Rate 15 ? 15 Blood Pressure ? 148/86 H ? Pulse Oximetry 93 ? 93 Oxygen Delivery Method ? ? ? Oxygen Flow Rate ? ? ? Fraction of Inspired Oxygen ? 09/26/2322:20 09/26/2322:32 09/26/2322:33 Temperature ? ? ? Pulse Rate ? 90 90 Respiratory Rate ? 14 18 Blood Pressure ? ? ? Pulse Oximetry 94 93 94 Oxygen Delivery Method ? ? ? Oxygen Flow Rate ? ? ? Fraction of Inspired Oxygen ? 09/26/2322:33 09/26/2322:35 09/26/2322:35 Temperature ? ? ? Pulse Rate ? ? 90 Respiratory Rate ? ? 14 Blood Pressure 158/86 H 149/83 H ? Pulse Oximetry ? ? 94 Oxygen Delivery Method ? ? ? Oxygen Flow Rate ? ? ? Fraction of Inspired Oxygen ? 09/26/2322:40 09/26/2322:40 09/26/2322:45 Temperature ? ? ? Pulse Rate ? 89 ? Respiratory Rate ? 13 ? Blood Pressure 143/81 H ? 145/81 H Pulse Oximetry ? 94 ? Oxygen Delivery Method ? ? ? Oxygen Flow Rate ? ? ? Fraction of Inspired Oxygen ? 09/26/2322:45 09/26/2322:50 09/26/2322:50 Temperature ? ? ? Pulse Rate 89 ? 88 Respiratory Rate 14 ? 14 Blood Pressure ? 145/78 H ? Pulse Oximetry 94 ? 94 Oxygen Delivery Method ? ? ? Oxygen Flow Rate ? ? ? Fraction of Inspired Oxygen ? 09/26/2322:55 09/26/2322:55 09/27/2299:00 Temperature ? ? ? Pulse Rate ? 88 ? Respiratory Rate ? 18 ? Blood Pressure 153/85 H ? 155/83 H Pulse Oximetry ? 93 ? Oxygen Delivery Method ? ? ? Oxygen Flow Rate ? ? ? Fraction of Inspired Oxygen ? 09/27/2299:00 09/27/2299:05 09/27/2299:05 Temperature ? ? ? Pulse Rate 88 ? 88 Respiratory Rate 15 ? 14 Blood Pressure ? 153/85 H ? Pulse Oximetry 94 ? 94 Oxygen Delivery Method ? ? ? Oxygen Flow Rate ? ? ? Fraction of Inspired Oxygen ? 09/27/2299:10 09/27/2299:10 09/27/2299:15 Temperature ? ? ? Pulse Rate ? 88 88 Respiratory Rate ? 16 15 Blood Pressure 167/89 H ? ? Pulse Oximetry ? 94 94 Oxygen Delivery Method ? ? ? Oxygen Flow Rate ? ? ? Fraction of Inspired Oxygen ? 09/27/2299:16 09/27/2299:16 09/27/2299:20 Temperature ? ? ? Pulse Rate ? 88 ? Respiratory Rate ? 14 ? Blood Pressure 152/90 H ? 161/97 H Pulse Oximetry ? 94 ? Oxygen Delivery MethodB ? ? ? Oxygen Flow Rate ? ? ? Fraction of Inspired Oxygen ? 09/27/2299:20 09/27/2299:25 09/27/2299:25 Temperature ? ? ? Pulse Rate 89 ? 90 Respiratory Rate 18 ? 17 Blood Pressure ? 144/74 H ? Pulse Oximetry 93 ? ? Oxygen Delivery Method Nasal Cannula ? ? Oxygen Flow Rate 2 ? ? Fraction of Inspired Oxygen ? 09/27/2299:30 09/27/2299:30 09/27/2299:35 Temperature ? ? ? Pulse Rate ? 89 ? Respiratory Rate ? 13 ? Blood Pressure 145/78 H ? 152/81 H Pulse Oximetry ? ? ? Oxygen Delivery Method ? ? ? Oxygen Flow Rate ? ? ? Fraction of Inspired Oxygen ? 09/27/2299:35 09/27/2299:40 09/27/2299:41 Temperature ? ? ? Pulse Rate 88 83 ? Respiratory Rate 14 15 ? Blood Pressure ? ? 167/95 H Pulse Oximetry ? 97 ? Oxygen Delivery Method ? ? ? Oxygen Flow Rate ? ? ? Fraction of Inspired Oxygen ? 09/27/2299:41 09/27/2299:45 09/27/2299:45 Temperature ? ? ? Pulse Rate 84 ? 85 Respiratory Rate 15 ? 15 Blood Pressure ? 160/86 H ? Pulse Oximetry 97 ? 97 Oxygen Delivery Method ? ? ? Oxygen Flow Rate ? ? ? Fraction of Inspired Oxygen ? 09/27/2299:50 09/27/2299:50 09/27/2299:55 Temperature ? ? ? Pulse Rate ? 85 ? Respiratory Rate ? 15 ? Blood Pressure 149/88 H ? 146/89 H Pulse Oximetry ? 97 ? Oxygen Delivery Method ? ? ? Oxygen Flow Rate ? ? ? Fraction of Inspired Oxygen ? 09/27/2299:55 09/27/2300:00 09/27/2300:00 Temperature ? ? ? Pulse Rate 85 ? 85 Respiratory Rate 17 ? 16 Blood Pressure ? 154/89 H ? Pulse Oximetry 98 ? 96 Oxygen Delivery Method ? ? ? Oxygen Flow Rate ? ? ? Fraction of Inspired Oxygen ? 09/27/2300:05 09/27/2300:05 09/27/2300:10 Temperature ? ? ? Pulse Rate ? 86 ? Respiratory Rate ? 19 ? Blood Pressure 159/95 H ? 158/90 H Pulse Oximetry ? 96 ? Oxygen Delivery Method ? ? ? Oxygen Flow Rate ? ? ? Fraction of Inspired Oxygen ? 09/27/2300:10 09/27/2300:15 09/27/2300:15 Temperature ? ? ? Pulse Rate 86 ? 87 Respiratory Rate 15 ? 20 Blood Pressure ? 153/89 H ? Pulse Oximetry 93 ? 93 Oxygen Delivery Method ? ? ? Oxygen Flow Rate ? ? ? Fraction of Inspired Oxygen ? 09/27/2300:20 09/27/2300:20 09/27/2300:40 Temperature ? ? ? Pulse Rate ? 87 ? D Respiratory Rate ? 17 ? Blood Pressure 180/105 H ? ? Pulse Oximetry ? 97 100 Oxygen Delivery Method ? ? Nasal Cannula Oxygen Flow Rate ? ? 2 Fraction of Inspired Oxygen ? 09/27/2300:38 09/27/2301:06 09/27/2300:54 Temperature 98.8 F ? ? Pulse Rate 86 ? ? Respiratory Rate 15 ? ? Blood Pressure 180/92 H ? 156/89 H Pulse Oximetry 99 ? ? Oxygen Delivery Method ? Nasal Cannula ? Oxygen Flow Rate 2 ? ? Fraction of Inspired Oxygen ? 09/27/2302:28 09/28/2303:52 09/27/2301:06 Temperature ? 100.7 F H 100.7 F H Pulse Rate 92 H ? 89 Respiratory Rate ? ? 16 Blood Pressure ? ? 165/90 H Pulse Oximetry 96 ? 94 Oxygen Delivery Method Nasal Cannula ? ? Oxygen Flow Rate 2 ? ? Fraction of Inspired Oxygen 28 ? ? ? 09/27/2304:38 Temperature ? Pulse Rate ? Respiratory Rate ? Blood Pressure ? Pulse Oximetry 96 Oxygen Delivery Method Nasal Cannula Oxygen Flow Rate 1 Fraction of Inspired Oxygen ? Fraction of Inspired Oxygen ? 28? SaO2/FiO2 Ratio ? 342 ? Oxygen Delivery Method? Nasal Cannula ? Oxygen Flow Rate? 1 ? Narrative Exam Narrative: GEN: no acute distress HEENT: moist mucous membranes, PERRL NECK: trachea midline, no JVD PULM: clear bilaterally, no wheezes, rhonchi, rales CV: regular rate and rhythm, no murmurs ABD: soft, nontender, nondistended, no organomegaly, normal bowel sounds EXT: warm and well perfused, chronic venous stasis changes on legs with multiple ulcers on bilateral legs drainng serosanguinous fluid, with tenderness and erythema NEURO: awake, alert, oriented, no focal deficits Objective Labs 09/26/22 19:50? 09/26/22 19:50? Labs: Laboratory Results - last 24 hr ? 09/26/22 09/26/22 09/26/22 ? 19:50 19:50 19:50 WBC ?23.4 H ? ? RBC ?3.84 L ? ? Hgb ?11.0 L ? ? Hct ?33.2 L ? ? MCV ?86.5 ? ? MCH ?28.6 ? ? MCHC ?33.0 ? ? RDW ?14.8 ? ? Plt Count ?421 H ? ? Neut % (Auto) ?91.8 H ? ? Lymph % (Auto) ?4.0 L ? ? [place] % (Auto) ?3.7 ? ? Eos % (Auto) ?0.0 L ? ? Baso % (Auto) ?0.5 ? ? Neut # (Auto) ?10948 H ? ? Lymph # (Auto) ?900 L ? ? [place] # (Auto) ?900 ? ? Eos # (Auto) ?0 ? ? Baso # (Auto) ?100 ? ? PT ? ?16.1 H ? INR ? ?1.4 H ? APTT ? ?33 ? Sodium ? ? ?131 L Potassium ? ? ?4.1 Chloride ? ? ?95 L Carbon Dioxide ? ? ?28 BUN ? ? ?15 Creatinine ? ? ?0.88 Estimated GFR ? ? ?> 60 BUN/Creatinine Ratio ? ? ?17.0 Glucose ? ? ?114 H Lactate ? ? ? Calcium ? ? ?8.5 Total Bilirubin ? ? ?0.6 AST ? ? ?21 ALT ? ? ?17 Alkaline Phosphatase ? ? ?101 Total Protein ? ? ?7.6 Albumin ? ? ?3.5 Globulin ? ? ?4.1 Albumin/Globulin Ratio ? ? ?0.9 L Lipase ? ? ?17 L Procalcitonin ? ? ?0.18 Urine Color ? ? ? Urine Appearance ? ? ? Urine pH ? ? ? D Ur Specific Fing[place] ? ? ? Urine Protein ? ? ? Urine Glucose (UA) ? ? ? Urine Ketones ? ? ? Urine Occult Blood ? ? ? Urine Nitrate ? ? ? Urine Bilirubin ? ? ? Urine Urobilinogen ? ? ? Ur Leukocyte Esterase ? ? ? Urine RBC ? ? ? Urine WBC ? ? ? Urine Bacteria ? ? ? Ur Culture Indicated? Salicylates ? ? ? U Opiates 300ng/mL cut ? ? ? Ur Oxycodone Screen ? ? ? Urine Methadone Screen ? ? ? AcetaminophenB ? ? ? Ur Barbiturates Screen ? ? ? U Tricyclic Antidepress ? ? ? Ur Phencyclidine Scrn ? ? ? Ur Amphetamines Screen ? ? ? U Methamphetamines Scrn ? ? ? Ur MDMA Scrn (Ecstasy) ? ? ? U Benzodiazepines Scrn ? ? ? Urine Cocaine Screen ? ? ? U Marijuana (THC) Screen ? ? ? SARS-CoV-2 (PCR) ? 09/26/22 09/26/22 09/26/22 ? 19:50 19:50 19:55 WBC ? ? ? RBC ? ? ? Hgb ? ? ? Hct ? ? ? MCV ? ? ? MCH ?B ? ? MCHC ? ? ? RDW ? ? ? Plt Count ? ? ? Neut % (Auto) ? ? ? Lymph % (Auto) ? ? ? [place] % (Auto) ? ? ? Eos % (Auto) ? ? ? Baso % (Auto) ? ? ? Neut # (Auto) ? ? ? Lymph # (Auto) ? ? ? [place] # (Auto) ? ? ? Eos # (Auto) ? ? ? Baso # (Auto) ? ? ? PT ? ? ? INR ? ? ? APTT ? ? ? Sodium ? ? ? Potassium ? ? ? Chloride ? ? ? Carbon Dioxide ? ? ? BUN ? ? ? Creatinine ? ? ? Estimated GFR ? ? ? BUN/Creatinine Ratio ? ? ? Glucose ? ? ? Lactate ?0.7 ? ? Calcium ? ? ? Total Bilirubin ? ? ? AST ? ? ? ALT ? ? ? Alkaline Phosphatase ? ? ? Total Protein ? ? ? Albumin ? ? ? Globulin ? ? ? Albumin/Globulin Ratio ? ? ? Lipase ? ? ? Procalcitonin ? ? ? D Urine Color ? ? ? Urine Appearance ? ? ? Urine pH ? ? ? Ur Specific [place] ? ? ? Urine Protein ? ? ? Urine Glucose (UA) ? ? ? Urine Ketones ? ? ? Urine Occult Blood ? ? ? Urine Nitrate ? ? ? Urine Bilirubin ? ? ? Urine Urobilinogen ? ? ? Ur Leukocyte Esterase ? ? ? Urine RBC ? ? ? Urine WBC ? ? ? Urine Bacteria ? ? ? Ur Culture Indicated? Salicylates ? ?< 1.0 ? U Opiates 300ng/mL cut ? ? ? Ur Oxycodone Screen ? ? ? Urine Methadone Screen ? ? ? Acetaminophen ? ?< 10 ? Ur Barbiturates Screen ? ? ? U Tricyclic Antidepress ? ? ? Ur Phencyclidine Scrn ? ? ? Ur Amphetamines Screen ? ? ? U Methamphetamines Scrn ? ? ? Ur MDMA Scrn (Ecstasy) ? ? ? U Benzodiazepines Scrn ? ? ? Urine Cocaine Screen ? ? ? U Marijuana (THC) Screen ? ? ? SARS-CoV-2 (PCR) ? ? ?Negative D ? 09/27/22 09/27/22 ? 04:31 04:31 WBC ? ? RBC ? ? Hgb ? ? Hct ? ? MCV ? ? MCH ? ? MCHC ? ? RDW ? ? Plt Count ? ? Neut % (Auto) ? ? Lymph % (Auto) ? ? [place] % (Auto) ? ? Eos % (Auto) ? ? Baso % (Auto) ? ? Neut # (Auto) ? ? Lymph # (Auto) ? ? [place] # (Auto) ? ? Eos # (Auto) ? ? Baso # (Auto) ? ? PT ? ? INR ? ? APTT ? ? Sodium ? ? Potassium ? ? Chloride ? ? Carbon DioxideC ? ? BUN ? ? Creatinine ? ? Estimated GFR ? ? BUN/Creatinine Ratio ? ? Glucose ? ? Lactate ? ? Calcium ? ? Total Bilirubin ? ? D AST ? ? ALT ? ? Alkaline Phosphatase ? ? Total Protein ? ? Albumin ? ? Globulin ? ? Albumin/Globulin Ratio ? ? Lipase ? ? Procalcitonin ? ? Urine Color ?Yellow ? Urine Appearance ?Clear ? Urine pH ?6.5 ? Ur Specific Fing[place] ?1.015 ? Urine Protein ?Negative ? Urine Glucose (UA) ?Negative ? Urine KetonesC ?Trace H ? Urine Occult Blood ?Negative ? Urine Nitrate ?Negative ? Urine Bilirubin ?Negative ? Urine Urobilinogen ?0.2 ? Ur Leukocyte Esterase ?Negative ? Urine RBC ?None seen ? Urine WBC ?None seen ? Urine Bacteria ?None seen ? Ur Culture Indicated? ?Cult not indicated ? Salicylates ? ? U Opiates 300ng/mL cut ? ?Negative Ur Oxycodone Screen ? ?Negative Urine Methadone Screen ? ?Negative Acetaminophen ? ? Ur Barbiturates Screen ? ?Negative U Tricyclic Antidepress ? ?Negative Ur Phencyclidine Scrn ? ?Negative Ur Amphetamines Screen ? ?Positive H U Methamphetamines Scrn ? ?Positive H Ur MDMA Scrn (Ecstasy) ? ?Negative U Benzodiazepines Scrn ? ?Negative Urine Cocaine Screen ? ?Negative U Marijuana (THC) Screen ? ?Positive H SARS-CoV-2 (PCR) ? ? Assessment & Plan Assessment & Plan narrative: Mr. Capps is a 46M with chronic leg wound admitted with cellulitis. 1. Acute cellulitis,of legs (vs venous changes), present on admission and active. -started on IV antibiotics and vancomycin and cefepime -await cultures (pending) -deescalate and switch to oral antibiotics as able (1-2 days) -SIRS positive, with no organ dysfunction on admission -would recommend wound care on discharge -has been having back pain, CT showed no evidence of discitis or osteomyelitis, think spinal source unlikely -this morning he is refusing repeat lab draw 2. Drug abuse (methamphetamines and fentanyl), present on admission and active. -found to be meth positive on urine drug screen -admitted to smoking fentanyl in the hospital -treat agitation prn, high risk for AMA Quality VTE Deep Vein Thrombosis/Pulmonary Embolism Present on Admission: No
--- NOTE | 2022-09-27 12:56 | PM.PN.1 ---
Subjective Subjective Interval history: Sedated, narrative not obtained. Exam Vital Signs (past 8 hours): - 09/27/22 05:38 09/27/22 06:04 09/27/22 08:16 Temperature 99.4 F 98.8 F Pulse Rate 92 H 77 Respiratory Rate 12 12 Blood Pressure 136/75 141/79 H Pulse Oximetry 96 98 99 Oxygen Delivery Method Nasal Cannula Oxygen Flow Rate 1 1 09/27/22 09:00 09/27/22 10:00 Temperature 97.7 F Pulse Rate 72 Respiratory Rate 18 Blood Pressure 141/79 H Pulse Oximetry 98 97 Oxygen Delivery Method Room Air Oxygen Flow Rate 0 0 Fraction of Inspired Oxygen 28 SaO2/FiO2 Ratio 342 Oxygen Delivery Method Room Air Oxygen Flow Rate 0 Narrative Exam Narrative: Sedated Unkempt Poor dentition Lungs clear Hear regular, no murgur Abdomen soft Legs red with chronic venous changes. Tattoos. Objective Labs 09/27/22 10:05 09/27/22 10:05 Labs: Laboratory Results - last 24 hr 09/26/22 09/26/22 09/26/22 19:50 19:50 19:50 WBC 23.4 H RBC 3.84 L Hgb 11.0 L Hct 33.2 L MCV 86.5 MCH 28.6 MCHC 33.0 RDW 14.8 Plt Count 421 H Neut % (Auto) 91.8 H Lymph % (Auto) 4.0 L [place] % (Auto) 3.7 Eos % (Auto) 0.0 L Baso % (Auto) 0.5 Neut # (Auto) 37758 H Lymph # (Auto) 900 L [place] # (Auto) 900 Eos # (Auto) 0 Baso # (Auto) 100 PT 16.1 H INR 1.4 H APTT 33 Sodium 131 L Potassium 4.1 Chloride 95 L Carbon Dioxide 28 BUN 15 Creatinine 0.88 Estimated GFR > 60 BUN/Creatinine Ratio 17.0 Glucose 114 H Lactate Calcium 8.5 Total Bilirubin 0.6 AST 21 ALT 17 Alkaline Phosphatase 101 Total Protein 7.6 Albumin 3.5 Globulin 4.1 Albumin/Globulin Ratio 0.9 L Lipase 17 L Procalcitonin 0.18 Urine Color Urine Appearance Urine pH Ur Specific [place] Urine Protein Urine Glucose (UA) Urine Ketones Urine Occult Blood Urine Nitrate Urine Bilirubin Urine Urobilinogen Ur Leukocyte Esterase Urine RBC Urine WBC Urine Bacteria Ur Culture Indicated? Nasal Screen MRSA (PCR) Salicylates U Opiates 300ng/mL cut Ur Oxycodone Screen Urine Methadone Screen Acetaminophen Ur Barbiturates Screen U Tricyclic Antidepress Ur Phencyclidine Scrn Ur Amphetamines Screen U Methamphetamines Scrn Ur MDMA Scrn (Ecstasy) U Benzodiazepines Scrn Urine Cocaine Screen U Marijuana (THC) Screen SARS-CoV-2 (PCR) 09/26/22 09/26/22 09/26/22 19:50 19:50 19:55 WBC RBC Hgb Hct MCV MCH MCHC RDW Plt Count Neut % (Auto) Lymph % (Auto) [place] % (Auto) Eos % (Auto) Baso % (Auto) Neut # (Auto) Lymph # (Auto) [place] # (Auto) Eos # (Auto) Baso # (Auto) PT INR APTT Sodium Potassium Chloride Carbon Dioxide BUN Creatinine Estimated GFR BUN/Creatinine Ratio Glucose Lactate 0.7 Calcium Total Bilirubin AST ALT Alkaline Phosphatase Total Protein Albumin Globulin Albumin/Globulin Ratio Lipase Procalcitonin Urine Color Urine Appearance Urine pH Ur Specific [place] Urine Protein Urine Glucose (UA) Urine Ketones Urine Occult Blood Urine Nitrate Urine Bilirubin Urine Urobilinogen Ur Leukocyte Esterase Urine RBC Urine WBC Urine Bacteria Ur Culture Indicated? Nasal Screen MRSA (PCR) Salicylates < 1.0 U Opiates 300ng/mL cut Ur Oxycodone Screen Urine Methadone Screen Acetaminophen < 10 Ur Barbiturates Screen U Tricyclic Antidepress Ur Phencyclidine Scrn Ur Amphetamines Screen U Methamphetamines Scrn Ur MDMA Scrn (Ecstasy) U Benzodiazepines Scrn Urine Cocaine Screen U Marijuana (THC) Screen SARS-CoV-2 (PCR) Negative 09/27/22 09/27/22 09/27/22 04:31 04:31 09:45 WBC RBC Hgb Hct MCV MCH MCHC RDW Plt Count Neut % (Auto) Lymph % (Auto) [place] % (Auto) Eos % (Auto) Baso % (Auto) Neut # (Auto) Lymph # (Auto) [place] # (Auto) Eos # (Auto) Baso # (Auto) PT INR APTT Sodium Potassium Chloride Carbon Dioxide BUN Creatinine Estimated GFR BUN/Creatinine Ratio Glucose Lactate Calcium Total Bilirubin AST ALT Alkaline Phosphatase Total Protein Albumin Globulin Albumin/Globulin Ratio Lipase Procalcitonin Urine Color Yellow Urine Appearance Clear Urine pH 6.5 Ur Specific [place] 1.015 Urine Protein Negative Urine Glucose (UA) Negative Urine Ketones Trace H Urine Occult Blood Negative Urine Nitrate Negative Urine Bilirubin Negative Urine Urobilinogen 0.2 Ur Leukocyte Esterase Negative Urine RBC None seen Urine WBC None seen Urine Bacteria None seen Ur Culture Indicated? Cult not indicated Nasal Screen MRSA (PCR) Detected H Salicylates U Opiates 300ng/mL cut Negative Ur Oxycodone Screen Negative Urine Methadone Screen Negative Acetaminophen Ur Barbiturates Screen Negative U Tricyclic Antidepress Negative Ur Phencyclidine Scrn Negative Ur Amphetamines Screen Positive H U Methamphetamines Scrn Positive H Ur MDMA Scrn (Ecstasy) Negative U Benzodiazepines Scrn Negative Urine Cocaine Screen Negative U Marijuana (THC) Screen Positive H SARS-CoV-2 (PCR) 09/27/22 09/27/22 10:05 10:05 WBC 12.5 H RBC 3.87 L Hgb 11.1 L Hct 33.6 L MCV 86.8 MCH 28.8 MCHC 33.1 RDW 15.5 H Plt Count 357 Neut % (Auto) 80.3 H Lymph % (Auto) 11.3 L [place] % (Auto) 7.0 Eos % (Auto) 0.9 L Baso % (Auto) 0.5 Neut # (Auto) 12963 H Lymph # (Auto) 1400 [place] # (Auto) 900 Eos # (Auto) 100 Baso # (Auto) 100 PT INR APTT Sodium 135 L Potassium 4.1 Chloride 100 Carbon Dioxide 29 BUN 14 Creatinine 0.83 Estimated GFR > 60 BUN/Creatinine Ratio 16.9 Glucose 127 H Lactate Calcium 8.2 L Total Bilirubin AST ALT Alkaline Phosphatase Total Protein Albumin Globulin Albumin/Globulin Ratio Lipase Procalcitonin Urine Color Urine Appearance Urine pH Ur Specific [place] Urine Protein Urine Glucose (UA) Urine Ketones Urine Occult Blood Urine Nitrate Urine Bilirubin Urine Urobilinogen Ur Leukocyte Esterase Urine RBC Urine WBC Urine Bacteria Ur Culture Indicated? Nasal Screen MRSA (PCR) Salicylates U Opiates 300ng/mL cut Ur Oxycodone Screen Urine Methadone Screen Acetaminophen Ur Barbiturates Screen U Tricyclic Antidepress Ur Phencyclidine Scrn Ur Amphetamines Screen U Methamphetamines Scrn Ur MDMA Scrn (Ecstasy) U Benzodiazepines Scrn Urine Cocaine Screen U Marijuana (THC) Screen SARS-CoV-2 (PCR) PFSH Medical History Cellulitis of left leg Chronic wound of extremity COVID-19 virus infection Social History household members: other Smoking Status: Current every day smoker alcohol intake: never Assessment & Plan Assessment & Plan narrative: 1. Acute leg cellulitis, present on admission and active. -started on IV antibiotics and vancomycin and cefepime -await cultures (remain negative) -deescalate and switch to oral antibiotics as able (1-2 days) -SIRS positive, with no organ dysfunction on admission -would recommend wound care on discharge -has been having back pain, CT showed no evidence of discitis or osteomyelitis, think spinal source unlikely -this morning he is refusing repeat lab draw 2. Drug abuse (methamphetamine, fentanyl). Present on admission and active. -found to be methamphetamine positive on urine drug screen -admitted to smoking fentanyl in the hospital Quality VTE Deep Vein Thrombosis/Pulmonary Embolism Present on Admission: No
[2022-09-27] MEDS: IBUPROFEN 600 MG TABLET PO (13:10)
--- NOTE | 2022-09-27 16:43 | PM.DS.1 ---
History of Present Illness History of Present Illness Date Patient Seen: 09/27/22 Time Patient Seen: 05:30 Chief complaint: Thinks kidney infection Narrative: Mr. Capps is a 47M with H chronic left leg ulcer, unstable housing, drug abuse who presents to the hospital primarily complaining of back pain. He actually thought he had kidney pain as his pain was in his flanks, he denies spinal tenderness. He does not have abdominal pain, nausea, vomiting shortness of breath, or cough. He presented to the ED and was acting belligerent and evasive initially. 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 Later he was found by nurse to be smoking, according to the patient, fentanyl. He was noted to be screaming and cursing at staff. Vitals were notable fever to 100.9, heart rate in the 100s, respiratory rate in the 20s, sats 100% on room air. Labs notable for WBC 23.4, hgb 11, plts 421. Na 131, creatinine 0.88. INR 1.4. Procal 0.18. Lactate 0.7. Urine drug screen positive for meth. Chest xray with no acute process. CT chest, abdomen, pelvis was performed for concern for back pain and showed no evidence of pyelnephritis, and no evidence of osteomyelitis or diskitis. He was given antibiotics and fluid and admitted for further treatment. Upon arriving on the floor he was discussing leaving AMA if he did not get opiates. Discharge Providers Provider Date of admission: 09/27/22 00:48 Discharge Date: 09/27/22 Primary care physician: Doctor Hamlet MD Consults: 09/27/22 11:29 Consult to Seasoning Mixer Routine Comment: Discharge provider: Jaron Pak MD Summary Hospital Course Discharge Diagnosis: Against medical advice discharge Possible leg cellulitis Methamphetamine abuse Fentanyl abuse Hospital Course: Patient was admitted for possible leg cellulitis and started on empiric antibiotics. Patient was quite somnolent but there was report of him having smoked fentanyl prior to arrival. Patient was comfortable and somnolent throughout the morning but then woke in the afternoon, became agitated and declared he would answer medical advice. Status at Discharge Cognitive/behavioral status at discharge: oriented Functional status at discharge: independent ambulation Overall status at discharge: patient is back to baseline Time Spent with Patient Time spent: Greater than 30 minutes Exam Vital Signs (past 8 hours): - 09/27/22 09:00 09/27/22 10:00 09/27/22 13:00 Temperature 97.7 F Pulse Rate 72 Respiratory Rate 18 Blood Pressure 141/79 H Pulse Oximetry 98 97 94 Oxygen Delivery Method Room Air Room Air Oxygen Flow Rate 0 0 Fraction of Inspired Oxygen 28 SaO2/FiO2 Ratio 342 Oxygen Delivery Method Room Air Oxygen Flow Rate 0 Narrative Exam Narrative: Alert and oriented, no distress See exam from earlier progress note. Objective Labs 09/27/22 10:05 09/27/22 10:05 Labs: Laboratory Results - last 24 hr 09/26/22 09/26/22 09/26/22 19:50 19:50 19:50 WBC 23.4 H RBC 3.84 L Hgb 11.0 L Hct 33.2 L MCV 86.5 MCH 28.6 MCHC 33.0 RDW 14.8 Plt Count 421 H Neut % (Auto) 91.8 H Lymph % (Auto) 4.0 L [place] % (Auto) 3.7 Eos % (Auto) 0.0 L Baso % (Auto) 0.5 Neut # (Auto) 70401 H Lymph # (Auto) 900 L [place] # (Auto) 900 Eos # (Auto) 0 Baso # (Auto) 100 PT 16.1 H INR 1.4 H APTT 33 Sodium 131 L Potassium 4.1 Chloride 95 L Carbon Dioxide 28 BUN 15 Creatinine 0.88 Estimated GFR > 60 BUN/Creatinine Ratio 17.0 Glucose 114 H Lactate Calcium 8.5 Total Bilirubin 0.6 AST 21 ALT 17 Alkaline Phosphatase 101 Total Protein 7.6 Albumin 3.5 Globulin 4.1 Albumin/Globulin Ratio 0.9 L Lipase 17 L Procalcitonin 0.18 Urine Color Urine Appearance Urine pH Ur Specific [place] Urine Protein Urine Glucose (UA) Urine Ketones Urine Occult Blood Urine Nitrate Urine Bilirubin Urine Urobilinogen Ur Leukocyte Esterase Urine RBC Urine WBC Urine Bacteria Ur Culture Indicated? Nasal Screen MRSA (PCR) Salicylates U Opiates 300ng/mL cut Ur Oxycodone Screen Urine Methadone Screen Acetaminophen Ur Barbiturates Screen U Tricyclic Antidepress Ur Phencyclidine Scrn Ur Amphetamines Screen U Methamphetamines Scrn Ur MDMA Scrn (Ecstasy) U Benzodiazepines Scrn Urine Cocaine Screen U Marijuana (THC) Screen SARS-CoV-2 (PCR) 09/26/22 09/26/22 09/26/22 19:50 19:50 19:55 WBC RBC Hgb Hct MCV MCH MCHC RDW Plt Count Neut % (Auto) Lymph % (Auto) [place] % (Auto) Eos % (Auto) Baso % (Auto) Neut # (Auto) Lymph # (Auto) [place] # (Auto) Eos # (Auto) Baso # (Auto) PT INR APTT Sodium Potassium Chloride Carbon Dioxide BUN Creatinine Estimated GFR BUN/Creatinine Ratio Glucose Lactate 0.7 Calcium Total Bilirubin AST ALT Alkaline Phosphatase Total Protein Albumin Globulin Albumin/Globulin Ratio Lipase Procalcitonin Urine Color Urine Appearance Urine pH Ur Specific [place] Urine Protein Urine Glucose (UA) Urine Ketones Urine Occult Blood Urine Nitrate Urine Bilirubin Urine Urobilinogen Ur Leukocyte Esterase Urine RBC Urine WBC Urine Bacteria Ur Culture Indicated? Nasal Screen MRSA (PCR) Salicylates < 1.0 U Opiates 300ng/mL cut Ur Oxycodone Screen Urine Methadone Screen Acetaminophen < 10 Ur Barbiturates Screen U Tricyclic Antidepress Ur Phencyclidine Scrn Ur Amphetamines Screen U Methamphetamines Scrn Ur MDMA Scrn (Ecstasy) U Benzodiazepines Scrn Urine Cocaine Screen U Marijuana (THC) Screen SARS-CoV-2 (PCR) Negative 09/27/22 09/27/22 09/27/22 04:31 04:31 09:45 WBC RBC Hgb Hct MCV MCH MCHC RDW Plt Count Neut % (Auto) Lymph % (Auto) [place] % (Auto) Eos % (Auto) Baso % (Auto) Neut # (Auto) Lymph # (Auto) [place] # (Auto) Eos # (Auto) Baso # (Auto) PT INR APTT Sodium Potassium Chloride Carbon Dioxide BUN Creatinine Estimated GFR BUN/Creatinine Ratio Glucose Lactate Calcium Total Bilirubin AST ALT Alkaline Phosphatase Total Protein Albumin Globulin Albumin/Globulin Ratio Lipase Procalcitonin Urine Color Yellow Urine Appearance Clear Urine pH 6.5 Ur Specific [place] 1.015 Urine Protein Negative Urine Glucose (UA) Negative Urine Ketones Trace H Urine Occult Blood Negative Urine Nitrate Negative Urine Bilirubin Negative Urine Urobilinogen 0.2 Ur Leukocyte Esterase Negative Urine RBC None seen Urine WBC None seen Urine Bacteria None seen Ur Culture Indicated? Cult not indicated Nasal Screen MRSA (PCR) Detected H Salicylates U Opiates 300ng/mL cut Negative Ur Oxycodone Screen Negative Urine Methadone Screen Negative Acetaminophen Ur Barbiturates Screen Negative U Tricyclic Antidepress Negative Ur Phencyclidine Scrn Negative Ur Amphetamines Screen Positive H U Methamphetamines Scrn Positive H Ur MDMA Scrn (Ecstasy) Negative U Benzodiazepines Scrn Negative Urine Cocaine Screen Negative U Marijuana (THC) Screen Positive H SARS-CoV-2 (PCR) 09/27/22 09/27/22 10:05 10:05 WBC 12.5 H RBC 3.87 L Hgb 11.1 L Hct 33.6 L MCV 86.8 MCH 28.8 MCHC 33.1 RDW 15.5 H Plt Count 357 Neut % (Auto) 80.3 H Lymph % (Auto) 11.3 L [place] % (Auto) 7.0 Eos % (Auto) 0.9 L Baso % (Auto) 0.5 Neut # (Auto) 60268 H Lymph # (Auto) 1400 [place] # (Auto) 900 Eos # (Auto) 100 Baso # (Auto) 100 PT INR APTT Sodium 135 L Potassium 4.1 Chloride 100 Carbon Dioxide 29 BUN 14 Creatinine 0.83 Estimated GFR > 60 BUN/Creatinine Ratio 16.9 Glucose 127 H Lactate Calcium 8.2 L Total Bilirubin AST ALT Alkaline Phosphatase Total Protein Albumin Globulin Albumin/Globulin Ratio Lipase Procalcitonin Urine Color Urine Appearance Urine pH Ur Specific [place] Urine Protein Urine Glucose (UA) Urine Ketones Urine Occult Blood Urine Nitrate Urine Bilirubin Urine Urobilinogen Ur Leukocyte Esterase Urine RBC Urine WBC Urine Bacteria Ur Culture Indicated? Nasal Screen MRSA (PCR) Salicylates U Opiates 300ng/mL cut Ur Oxycodone Screen Urine Methadone Screen Acetaminophen Ur Barbiturates Screen U Tricyclic Antidepress Ur Phencyclidine Scrn Ur Amphetamines Screen U Methamphetamines Scrn Ur MDMA Scrn (Ecstasy) U Benzodiazepines Scrn Urine Cocaine Screen U Marijuana (THC) Screen SARS-CoV-2 (PCR) [facility] Medical History Cellulitis of left leg Chronic wound of extremity COVID-19 virus infection Social History household members: other Smoking Status: Current every day smoker alcohol intake: never Discharge Plan Discharge Plan Patient Disposition: Left Against Medical Advice Provider Discharge Comment: Patient left against medical advice Discharge orders & Medications Follow up/Referrals: Miscellaneous,DoctorMD [Primary Care Provider] - Visit Report/Discharge Packet Stand Alone Forms: Patient Portal/API, Stroke Signs & Symptoms Discharge Data Primary Care Provider: Doctor Hamlet Attending Provider: Pepe Johnston VTE Deep Vein Thrombosis/Pulmonary Embolism Present on Admission: No
[2022-09-27] MEDS: BUPRENORPHINE/NALOXONE 8MG/2MG 1 TAB SL (17:16)
--- NOTE | 2022-09-27 17:30 | CM.DANOTE ---
Initial DCP Assessment Note Patient is 47 y/o male who presents to due to concern for Kidney Pain. Upon arrival to ED, RN confiscates drug paraphernalia from patient and patient admits to smoking Fentanyl in ED. Patient is admitted to ICU due to concern for cellulitis and MRSA. Patient denies current PCP, patient has Medicaid [employer] options insurance. INSTRUCTIONAL ASSISTANT enters room to meet with patient. Patient presents as A/Ox4, patient endorses he resides in [place] in a trailer at a homeless camp. Patient endorses that his mother resides in low income housing in [place] and he can stay with her two weeks at a time as well. Patient endorses current Fentanyl and Methamphetamine use, patient endorses his most recent use was last night. Patient endorses he is interested in [facility] outpatient services. Patient endorses that he receives food stamps and [place] assistance. Patient endorses friend or family could sisal picker patient upon d/c if he can call from a different phone, INSTRUCTIONAL ASSISTANT informs RN. RN reports that patient may leave AMA, INSTRUCTIONAL ASSISTANT discusses importance of staying until medical clearance and patient agrees. Upon writing this assessment it is reported to RN that patient is planning to leave AMA. INSTRUCTIONAL ASSISTANT provides patient with list of [facility] resources, list of PCPs and housing resources. Plan: Patient likely to d/c to community AMA, trying to secure ride with friends/family. If patient stays in ICU until medically clear, if needed patient can have arranged Medicaid transport. ROSALINA Yarbrough Discharge Planning/Care Management CM Discharge Assessment Start: 09/27/22 16:45 Freq: Status: Active Protocol: Document 09/27/22 16:46 LN (Rec: 09/27/22 17:09 LN [id number]) Discharge Planning Assessment Assigned Computer Equipment Repairer ROSALINA Pop Advance Directives? No Advance Directives on File No History Provided By Patient,Medical Record Has Patient been admitted in last 30 No days? Prior Living Arrangements Mobile home Comment Patient endorses he lives in trailer at homeless camp Household Members none Type of transporation used prior to Relies on Others admit Comment Patient does not have a license but states he knows how to drive. Independent with ADL's Yes Is patient alert and oriented? Yes Discharge Plan Home Transportation Arrangement Patient trying to facilitate transport home via friend or family. Referrals Initiated None needed Additional Comment Per RN, patient is trying to leave AMA. During assessment patient endorsed agreement to stay through medical clearance .
[2022-09-28] VITALS (17 sets, daily range): BP systolic 129–150; BP diastolic 78–89; PULSE 72–82; RESP 16–20; TEMP 35.9–37.2; O2SAT 96–98
[2022-09-28] MEDS: CEFEPIME 1 GM in SODIUM CHLORIDE 0.9% 100 ML IV ×2 (01:56→13:21)
[2022-09-28] MEDS: HYDROCODONE/ACET 5/325 TABLET 1 TAB PO ×2 (05:24→12:40)
[2022-09-28 06:59] LABS: Vancomycin Trough 14.4 ug/mL (10-20)
[2022-09-28] MEDS: VANCOMYCIN 1,250 MG/250 ML PIGGYBACK 167 MG IV ×3 (07:15→23:38)
[2022-09-28] MEDS: VANCOMYCIN TROUGH 1 REQUEST MISC (07:16)
[2022-09-28] MEDS: IBUPROFEN 600 MG TABLET PO (08:12)
[2022-09-28] MEDS: HEPARIN 5,000 UNIT/ML VIAL 5000 UNIT SUBCUT ×2 (08:12→20:22)
[2022-09-28] MEDS: BUPRENORPHINE/NALOXONE 8MG/2MG 1 TAB SL (08:12)
[2022-09-28] MEDS: SODIUM CHLORIDE 0.9% 1,000 ML 100 ML IV (08:21)
[2022-09-28] MEDS: HYDROCODONE/ACET 10/325 TABLET 1 TAB PO ×3 (16:17→23:37)
--- NOTE | 2022-09-28 17:29 | PM.PN.1 ---
Subjective Subjective Interval history: Improved redness and slight improvement in pain today. Denies fever or chills, no nausea or vomiting. Pain medication needing to be increased slightly today. Exam Vital Signs (past 8 hours): - 09/28/22 11:00 09/28/22 12:00 09/28/22 15:00 Temperature 98.9 F Pulse Rate 76 Respiratory Rate 17 Blood Pressure 129/78 Pulse Oximetry 97 96 96 Oxygen Delivery Method Room Air Room Air Oxygen Flow Rate 0 09/28/22 16:00 Temperature 96.6 F L Pulse Rate 77 Respiratory Rate 20 Blood Pressure 139/78 Pulse Oximetry 97 Oxygen Delivery Method Oxygen Flow Rate 0 Fraction of Inspired Oxygen 28 SaO2/FiO2 Ratio 342 Oxygen Delivery Method Room Air Oxygen Flow Rate 0 Narrative Exam Narrative: GEN: no acute distress HEENT: moist mucous membranes, PERRL NECK: trachea midline, no JVD PULM: clear bilaterally, no wheezes, rhonchi, rales CV: regular rate and rhythm, no murmurs ABD: soft, nontender, nondistended, no organomegaly, normal bowel sounds EXT: warm and well perfused, chronic venous stasis changes on legs with multiple ulcers on bilateral legs drainng serosanguinous fluid, with tenderness and erythema NEURO: awake, alert, oriented, no focal deficits Objective Labs 09/27/22 10:05 09/27/22 10:05 Labs: Laboratory Results - last 24 hr 09/28/22 06:28 Vancomycin Trough 14.4 PFSH Medical History Cellulitis of left leg Chronic wound of extremity COVID-19 virus infection Social History household members: none Smoking Status: Current every day smoker alcohol intake: never Assessment & Plan Assessment & Plan narrative: 1. Acute leg cellulitis, present on admission and active. -started on IV antibiotics and vancomycin and cefepime, will continue today given improvement. + MRSA nasal swab. -cultures negative -deescalate and switch to oral antibiotics in 1-2 days. -SIRS positive, with no organ dysfunction on admission -outpatient wound care follow up recommended -has been having back pain, CT showed no evidence of discitis or osteomyelitis -leukocytosis much improved, continue to follow, patient intermittently refusing lab draws. 2. Drug abuse (methamphetamine, fentanyl). Present on admission and active. -found to be methamphetamine positive on urine drug screen -admitted to smoking fentanyl in the hospital -in addition to pain control, also on suboxone. Code: Full Dispo: probable discharge home in 1-2 days with improvement in cellulitis. DVT: HSQ BID Time Spent With Patient Critical Care time: I spent a total of [] minutes of critical care time on this patient's care today; this time is exclusive of procedural time. Quality VTE Deep Vein Thrombosis/Pulmonary Embolism Present on Admission: No
[2022-09-29] VITALS: O2SAT 95
[2022-09-29 00:52] VITALS: BP 131/75; PULSE 95; O2SAT 95
[2022-09-29] MEDS: CEFEPIME 1 GM in SODIUM CHLORIDE 0.9% 100 ML IV (01:32)
[2022-09-29] MEDS: VANCOMYCIN 1,250 MG/250 ML PIGGYBACK 167 MG IV (06:48)
[2022-09-29] MEDS: HYDROCODONE/ACET 10/325 TABLET 1 TAB PO ×2 (06:48→10:22)
[2022-09-29 08:00] VITALS: BP 172/100; PULSE 82; RESP 17; TEMP 37.2; O2SAT 99
[2022-09-29 08:20] LABS: Add Manual Diff / Slide Review NO; Basophils Absolute Auto 100 /uL (0-100); Basophils Percent Auto 0.8 % (0-2); Eosinophils Absolute Auto 500 /uL (0-450); Eosinophils Percent Auto 5.9 % (2-4); Hematocrit 33.4 % (41-53); Hemoglobin 11.2 g/dL (13.5-17.5); Lymphocytes Absolute Auto 1700 /uL (1100-4500); Lymphocytes Percent Auto 21.2 % (25-40); Mean Corpuscular HGB Conc 33.4 % (30-36); Mean Corpuscular Hemoglobin 29.1 PG (26-34); Mean Corpuscular Volume 86.9 fL (80-100); Monocytes Absolute Auto 600 /uL (0-900); Monocytes Percent Auto 7.9 % (3-14); Neutrophils Absolute Auto 5000 /uL (1500-7000); Neutrophils Percent Auto 64.2 % (50-75); Platelet Count 374 X10^3/uL (150-400); Red Blood Cell Count 3.84 X10^6/uL (4.5-5.9); White Blood Cell Count 7.8 X10^3/uL (4.5-11.0)
[2022-09-29 08:30] LABS: BUN Creatinine Ratio 15.7 (6-22); Blood Urea Nitrogen 11 mg/dL (9-20); Calcium 8.3 mg/dL (8.4-10.2); Carbon Dioxide 27 mmol/L (22-32); Chloride 105 mmol/L (98-107); Estimated Glomerular Filt Rate > 60 mL/min (>60); Glucose 72 mg/dL (70-100); HEMOLYSIS < 15 (0-50); Magnesium 1.8 mg/dL (1.6-2.3); Potassium 4.5 mmol/L (3.4-5.1); Sodium 138 mmol/L (137-145)
--- NOTE | 2022-09-29 08:50 | P.DS_ITS ---
History of Present Illness History of Present Illness Date Patient Seen: 09/29/22 Chief complaint: Thinks kidney infection Narrative: Per admitting provider, Mr. Capps is a 47M with H chronic left leg ulcer, unstable housing, drug abuse who presents to the hospital primarily complaining of back pain. He actually thought he had kidney pain as his pain was in his flanks, he denies spinal tenderness. He does not have abdominal pain, nausea, vomiting shortness of breath, or cough. He presented to the ED and was acting belligerent and evasive initially. He was found by nursing staff to have a newspaper editor managing and pipe and a knife which were placed in safe locked area per staff. Later he was found by nurse to be smoking, according to the patient, fentanyl. He was noted to be screaming and cursing at staff. Vitals were notable fever to 100.9, heart rate in the 100s, respiratory rate in the 20s, sats 100% on room air. Labs notable for WBC 23.4, hgb 11, plts 421. Na 131, creatinine 0.88. INR 1.4. Procal 0.18. Lactate 0.7. Urine drug screen positive for meth. Chest xray with no acute process. CT chest, abdomen, pelvis was performed for concern for back pain and showed no evidence of pyelnephritis, and no evidence of osteomyelitis or diskitis. He was given antibiotics and fluid and admitted for further treatment. Upon arriving on the floor he was discussing leaving AMA if he did not get opiates. Discharge Providers Provider Date of admission: 09/27/22 00:48 Discharge Date: 09/29/22 Primary care physician: Doctor Hamlet MD Consults: 09/27/22 11:29 Consult to Building Services Supervisor Routine Comment: Discharge provider: Jl Masters DO Summary Hospital Course Discharge Diagnosis: 1. Acute leg cellulitis, present on admission and active. 2. Drug abuse (methamphetamine, fentanyl). Present on admission and active. 3. 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 He was started on broad-spectrum antibiotics given a history of MRSA infection as well as Gram-negative infection. Blood cultures were obtained in the emergency room and were negative. He improved on cefepime and vancomycin therapy while here, and will be discharged on oral cefdinir and linezolid for a complicated left lower extremity cellulitis consistent with prior admissions. He has prior infections in that leg in the past. Given his continued nonhealing ulceration of his left lower extremity, he was previously given referral to wound care and he was counseled on cessation of smoking and recommended to follow-up with a primary care provider as an outpatient with possible biopsy for suspected thromboangiitis obliterans. Time Spent with Patient Time spent: Greater than 30 minutes Exam Vital Signs (past 8 hours): - 09/29/22 00:52 09/29/22 00:52 09/29/22 07:00 Temperature Pulse Rate 95 H Respiratory Rate Blood Pressure 131/75 Pulse Oximetry 95 Oxygen Delivery Method Room Air Oxygen Flow Rate 09/29/22 08:00 Temperature 99.0 F Pulse Rate 82 Respiratory Rate 17 Blood Pressure 172/100 H Pulse Oximetry 99 Oxygen Delivery Method Oxygen Flow Rate 0 Fraction of Inspired Oxygen 28 SaO2/FiO2 Ratio 342 Oxygen Delivery Method Room Air Oxygen Flow Rate 0 Narrative Exam Narrative: GEN: no acute distress HEENT: moist mucous membranes, PERRL NECK: trachea midline, no JVD PULM: clear bilaterally, no wheezes, rhonchi, rales CV: regular rate and rhythm, no murmurs ABD: soft, nontender, nondistended, no organomegaly, normal bowel sounds EXT: warm and well perfused, chronic venous stasis changes on legs with multiple ulcers on bilateral legs draining serosanguinous fluid, much improved erythema and tenderness today. NEURO: awake, alert, oriented, no focal deficits Objective Labs 09/29/22 08:10 09/29/22 08:10 Labs: Laboratory Results - last 24 hr 09/29/22 09/29/22 08:10 08:10 WBC 7.8 RBC 3.84 L Hgb 11.2 L Hct 33.4 L MCV 86.9 MCH 29.1 MCHC 33.4 RDW 15.0 H Plt Count 374 Neut % (Auto) 64.2 Lymph % (Auto) 21.2 L [place] % (Auto) 7.9 Eos % (Auto) 5.9 H Baso % (Auto) 0.8 Neut # (Auto) 5000 Lymph # (Auto) 1700 [place] # (Auto) 600 Eos # (Auto) 500 H Baso # (Auto) 100 Sodium 138 Potassium 4.5 Chloride 105 Carbon Dioxide 27 BUN 11 Creatinine 0.70 Estimated GFR > 60 BUN/Creatinine Ratio 15.7 Glucose 72 Calcium 8.3 L Magnesium 1.8 PFSH Medical History Cellulitis of left leg Chronic wound of extremity COVID-19 virus infection Social History household members: none Smoking Status: Current every day smoker alcohol intake: never Discharge Plan Discharge Plan Patient Disposition: Home Provider Discharge Comment: You were admitted to the hospital with cellulitis of your lower legs. Your ulcerations are likely in the setting of smoking, and there is a good chance they can heal if you quit. Antibiotic therapy will continue for another few days, a few pain medications were sent to your pharmacy as well. Continue tylenol and ibprofen for pain relief, only use opiate for severe or breakthough pain as needed. Discharge orders & Medications Prescriptions: New cefdinir 300 mg capsule 300 mg PO BID 5 Days Qty: 10 0RF linezolid 600 mg tablet 600 mg PO BID 5 Days Qty: 10 0RF hydrocodone-acetaminophen 10-325 mg tablet 1 tab PO Q6H PRN (Reason: pain) 7 Days Qty: 15 0RF ibuprofen 200 mg tablet 600 mg PO Q6H PRN (Reason: fever or pain) 30 Days Qty: 300 0RF Follow up/Referrals: Doctor Mcnulty MD [Primary Care Provider] - Diet/Activity/Treatments Diet: Diet as Tolerated Activity: As tolerated Visit Report/Discharge Packet Instructions: DI for Prescription Opioid Use Stand Alone Forms: Patient Portal/API, Stroke Signs & Symptoms Discharge Data Primary Care Provider: Doctor Hamlet Attending Provider: Pepe Johnston Quality VTE Deep Vein Thrombosis/Pulmonary Embolism Present on Admission: No
[2022-09-29] MEDS: BUPRENORPHINE/NALOXONE 8MG/2MG 1 TAB SL (09:01)
--- NOTE | 2022-09-29 09:28 | CM.DPC ---
DCP Discharge Home Per MD, pt is medically stable to d/c home today with some new scripts sent to [facility]. Per RN, pt states he does not have a ride home today. SW spoke to pt and confirmed [facility] and his address where his RV is parked and that he needs assist with transport. Pt confirms he is agreeable with continuing Suboxone tx and denies any hx of tx but preference is to stay [place] area and SW provided copy of [place] [facility] tx resource information for pt to contact after discharge. JUAN M called [employer] and confirmed Medicaid transport benefits but states since it's Sun it will be very difficult to find a taxi company that could come, might be 1400 or later and not a guarantee transport to be found. JUAN M looked up [employer] to [facility] schedule and only one time running today and already happened early this morning so no bus option for transport. Senior Application Security Consultant called [employer] and confirmed they could provide transport this morning about 1030 to [facility] and then home and SW filled out the Taxi Voucher form and made a copy for dump truck driver and CM Professional Fighter to review. Merts used to reduce risk of pt remaining overnight in the hospital when medically stable to d/c. SPENSER Veloz
== END 2022-09-29 10:35 | disposition home or self-care (01) ==
LOC: ED 19:52 → ICU 09-27 01:37 → AC 09-27 16:02
PROVIDERS: Internal Medicine; Admitting Provider Internal Medicine; Emergency Provider Emergency Medicine; Referring Provider Emergency Medicine; Visit Provider Internal Medicine
DX: L03.116 Cellulitis of left lower limb (principal); L03.115 Cellulitis of right lower limb; M54.9 Dorsalgia, unspecified; F15.129 Other stimulant abuse with intoxication, unspecified; Z53.29 Procedure and treatment not carried out because of patient's decision for other reasons; F17.210 Nicotine dependence, cigarettes, uncomplicated; Z20.822 Contact with and (suspected) exposure to COVID-19
CPT/HCPCS: 36415; 71045; 71260; 74177; 80048; 80053; 80202; 80305; 80329; 81001; 83605; 83690; 83735; 84145; 85025; 85610; 85730; 87040; 87635; 87797; 93005; 93010; 94760; 94762; 96361; 96365; 96366; 96367; 96375; 99284; C9803; G0378; G0480; J0692; J1644; J1885; J2405; J2543; Q9967

== ENCOUNTER 2024-02-27 22:25 | Emergency (ER) | payer OTHER, MEDICAID, SELFPAY ==
[2022-09-27 11:28] VITALS: BMI 24.4
--- NOTE | 2024-02-27 22:26 | ED.GENADULT ---
HPI - General Adult General Stated complaint: fit for detention History of Present Illness HPI narrative: 49-year-old gentleman brought in by police to be cleared for detention. He does have a history of previous MRSA. Housing instability, chronic lower extremity edema with venous stasis changes. He does not offer any additional medical history and records are not immediately available. I does not completely acknowledge use of fentanyl or methamphetamine but he said if he were to use those he would not be using them IV he would be smoking them. He notes that he has a small wound to the right anterior layton and a small wound to the left posterior calf. Does not describe fever, cough, chills, palpitations, headaches. Related Data Allergies Allergy/AdvReac Type Severity Reaction Status Date / Time No Known Drug Allergies Allergy Verified 09/26/22 19:07 Review of Systems Review of Systems Narrative: Pertinent positive and negative findings as per HPI Patient History Medical History (Updated 02/27/24 @ 22:43 by Sara Galeas MD) COVID-19 virus infection Cellulitis of left leg Chronic wound of extremity Social History household members: none Smoking Status: Current every day smoker alcohol intake: never Exam Initial Vital Signs Initial Vital Signs: General: Somewhat disheveled, chronically ill-appearing, he is in handcuffs he is completely cooperative HEENT: Moist mucous membranes, normal sclera with reactive pupils, scarring from prior chan around the face or appreciated Respiratory: Lungs are clear to auscultation, no wheezing no rales no rhonchi. Full and symmetrical air movement Cardiac: Regular rate and rhythm, 3/6 murmur is appreciated Abdomen: Soft, nontender, good bowel tones, no flank pain Skin: Chronic venous stasis changes bilaterally. 1+ bilateral lower extremity edema. He has a small wound to the right anterior layton that does appear to be healing. There is no surrounding erythema or drainage. Similar finding left posterior calf. Neurologic: Grossly neurologically intact with no obvious asymmetries or abnormalities Extremities: Edema that may well be dependent edema simply because he is sleeping in a car not able to elevate his feet or legs at all during the day. Minor skin wounds on both lower extremities neither of which are infected both of which are dressed with bacitracin. Psych: Cooperative, poor eye contact but appropriate insight and affect Medical Decision Making [facility] Narrative Medical decision making narrative: CC: Brought in by police to be fit for detention, history of MRSA Complicating co-morbidities: Housing instability, presumed fentanyl and methamphetamine use disorder, no additional records are immediately available however I suspect that there is a component of cardiomyopathy, and congestive heart failure given his chronic venous stasis changes in lower extremity edema. Patient states that he does not have a history hypertension Data collected from: patient Social determinants of health that may influence the patients condition: Housing instability, brought in by police on his way to detention Differential considered: Minor lower extremity wounds, significant wounds, sepsis, congestive heart failure, acute coronary syndrome Exam documented above, pertinent findings include: Exam is notable for findings consistent with living outside, dependent edema, does have a slight murmur but no complaints of dyspnea or palpitations. Chronic venous stasis changes and mild bilateral lower extremity edema suggest a component of congestive heart failure. Minor abrasions right anterior layton left posterior calf the are most appropriately treated with topical antibiotics at this point Treatments: Bacitracin and dressing to 2 small wounds to the lower extremities Discussion: 49-year-old gentleman brought in ?fit for detention? with concerns for MRSA. He is hypertensive however suspect that he is obviously anxious about being in the emergency department, anxious about going to detention and probably has a degree of withdrawal playing into the hypertension. This will need to be monitored by detention staff. If additional records are available for detention staff he likely has been on her should beyond hypertensive medication and diuretics which may both benefit. At this point he does not need oral antibiotics there is no sign of sepsis or impending circulatory collapse. Would recommend bacitracin to the 2 small wounds in the lower extremities until these have cleared. I suspect that actually being in detention where he can lay and a bed to relieve some of the lower extremity edema will help just as much with the wound resolution. Although again, not admitting to recreational drug use he was quite interested in medications that might help with withdrawal including Suboxone and when mentioned that we could also help set him up with [facility] addiction care after he is sent home from detention he did seem to be quite interested in this. At this point I think he is safe for discharge to detention Discharge Plan Departure Clinical Impression: Bilateral edema of lower extremity, Elevated blood pressure reading Open wound, lower leg Qualifiers: Encounter type: initial encounter Laterality: unspecified laterality Qualified Code(s): S81.809A - Unspecified open wound, unspecified lower leg, initial encounter Activity Restrictions/Additional Instructions: Mr. Capps was evaluated in the emergency department this evening He is 2 small wounds 1 on the right anterior layton the other in the left posterior calf. Neither are acutely infected. With his chronic venous stasis changes in lower extremity edema infection is potential. Would recommend bacitracin and dressings to these wounds until they heal Blood pressure was elevated. I do not have records to any additional medical history. Multiple reasons for elevated blood pressure including recent arrest, impending incarceration, concern for developing withdrawal symptoms, essential hypertension, volume overload with the potential for congestive heart failure. Would suggest monitoring blood pressure over the next couple of days. If old records are available and he has been on medications in the past, may benefit from restarting his prescription medications He is at risk for withdrawal from both fentanyl and methamphetamine. Did seem interested in Suboxone if this can be discussed at detention. We also mentioned outpatient detox and addiction treatment after he is released from detention and he did seem quite interested in this. At this point there are no acute issues that would require further evaluation or hospitalization. There are multiple chronic issues that will certainly benefit from further primary care follow up He is fit for detention Stand Alone Forms: Patient Portal/API
[2024-02-27 22:35] VITALS: BP 183/110; PULSE 81; RESP 20; TEMP 36.9; O2SAT 98; BMI 23.7
[2024-02-27] MEDS: BACITRACIN OINT 0.9 GM PCKT 1 APPLIC TOP (22:46)
--- NOTE | 2024-02-27 22:53 | PC.NURSE ---
Bacitraicin applied to bilat leg wounds and wounds dressed.
== END 2024-02-27 23:00 | disposition home or self-care (01) ==
PROVIDERS: Emergency Provider Emergency Medicine
DX: R60.0 Localized edema (principal); R03.0 Elevated blood-pressure reading, without diagnosis of hypertension; S81.801A Unspecified open wound, right lower leg, initial encounter
CPT/HCPCS: 99282